=== PATIENT | female | born 1985 | race Caucasian/White ===

== ENCOUNTER 2017-08-03 22:28 | Emergency (ER) | payer BC ==
[2017-08-03] MEDS ORDERED: SODIUM CHLORIDE 0.9% 1,000 ML IV STA (22:51)
--- NOTE | 2017-08-03 22:58 | ED ---
General Adult HPI - General Chief complaint: Dizziness Stated complaint: SOB Time Seen by Provider: 08/03/17 22:42 Source: patient, RN notes reviewed Mode of arrival: ambulatory Limitations: no limitations - History of Present Illness Initial comments: This a 32-year-old female presents emergency Department chief complaint of palpitations, dizziness and increased hunger. She states that she's had episodes throughout the last year where she knows she gets lightheaded states that she does not feel well and she feels that her heart starts racing. She states that she has had episodes of this and had her blood sugar tested which showed hypoglycemic. Patient states when she does he is better. She states though she's been having symptoms last few days alleviated with eating. She states that she try see every few hours. She does state that she even with supplemental night the fissures hungry. Patient states she is currently approximately 2 months. Patient denies any abdominal pain including nausea, vomiting, diarrhea, constipation, vaginal bleeding or vaginal discharge. She is A0 and scheduled see Dr. Phelan. Patient states already she started even before she was states is not related. Patient does have a history of hypothyroidism currently takes Synthroid 75 g. Patient states that occasionally she feels some pressure in her chest denies any shortness of breath she states that she went to work out today states that she denies anything after felt the symptoms were present. - Related Data Allergies Allergy/AdvReac Type Severity Reaction Status Date / Time No Known Allergies Allergy Verified 08/03/17 22:40 Review of Systems ROS Statement: Those systems with pertinent positive or pertinent negative responses have been documented in the HPI. ROS Other: All systems not noted in ROS Statement are negative. Past Medical History Additional Past Medical History / Comment(s): hypothyroidism History of Any Multi-Drug Resistant Organisms: None Reported Past Surgical History: No Surgical Hx Reported Past Psychological History: No Psychological Hx Reported Smoking Status: Never smoker Past Alcohol Use History: None Reported Past Drug Use History: None Reported General Exam Limitations: no limitations General appearance: alert, in no apparent distress Head exam: Present: atraumatic, normocephalic, normal inspection Eye exam: Present: normal appearance, PERRL, EOMI. Absent: scleral icterus, conjunctival injection, periorbital swelling ENT exam: Present: normal exam, normal oropharynx, mucous membranes moist, TM's normal bilaterally, normal external ear exam Neck exam: Present: normal inspection, full ROM. Absent: tenderness, meningismus, lymphadenopathy Respiratory exam: Present: normal lung sounds bilaterally. Absent: respiratory distress, wheezes, rales, rhonchi, stridor Cardiovascular Exam: Present: normal rhythm, tachycardia, normal heart sounds. Absent: systolic murmur, diastolic murmur, rubs, gallop, clicks GI/Abdominal exam: Present: soft, normal bowel sounds. Absent: distended, tenderness, guarding, rebound, rigid Neurological exam: Present: alert, oriented X3, CN II-XII intact, reflexes normal. Absent: motor sensory deficit Psychiatric exam: Present: anxious Skin exam: Present: warm, dry, intact, normal color. Absent: rash Course Vital Signs 08/03/17 08/03/17 22:35 23:51 Temperature 98.4 F 98.5 F Pulse Rate 115 H 107 H Respiratory 20 17 Rate Blood Pressure 137/80 130/76 O2 Sat by Pulse 100 100 Oximetry EKG Findings - EKG Comments: EKG Findings:: EKG performed at 22:50 sinus tachycardia with rate of 108 FL 146 QRS 82 QT/QTC 346/463 Medical Decision Making - Medical Decision Making 32-year-old female presented emergency department for palpitations not feeling well, possible hypoglycemic events. Patient lab work shows evidence of hypothyroidism. Patient is underdosed on her medications this time. I did advise her that she needs a follow-up with her technician semiconductor development for adjustment. She'll follow-up with Dr. Phelan for her . Patient symptoms are exacerbated by working out in may be having hypoglycemic events. We did discuss that she needs eat more protein in home weeds to help stabilize her blood sugar. We did discuss about monitoring her blood sugar though this will be discussed by her technician semiconductor development. Patient will be given toll mechanic for her palpitations. - Lab Data Result diagrams: 08/03/17 23:04 08/03/17 23:04 Lab Results 08/03/17 08/03/17 08/03/17 Range/Units 23:04 23:04 23:04 WBC 10.0 (3.8-10.6) k/uL RBC 4.71 (3.80-5.40) m/uL Hgb 13.9 (11.4-16.0) gm/dL Hct 41.1 (34.0-46.0) % MCV 87.4 (80.0-100.0) fL MCH 29.4 (25.0-35.0) pg MCHC 33.7 (31.0-37.0) g/dL RDW 14.4 (11.5-15.5) % Plt Count 263 (150-450) k/uL Neutrophils % 69 % Lymphocytes % 23 % Monocytes % 5 % Eosinophils % 1 % Basophils % 0 % Neutrophils # 6.9 (1.3-7.7) k/uL Lymphocytes # 2.3 (1.0-4.8) k/uL Monocytes # 0.5 (0-1.0) k/uL Eosinophils # 0.1 (0-0.7) k/uL Basophils # 0.0 (0-0.2) k/uL Sodium 138 (137-145) mmol/L Potassium 4.2 (3.5-5.1) mmol/L Chloride 100 (98-107) mmol/L Carbon Dioxide 24 (22-30) mmol/L Anion Gap 14 mmol/L BUN 17 (7-17) mg/dL Creatinine 0.60 (0.52-1.04) mg/dL Est GFR (MDRD) Af Amer >60 (>60 ml/min/1.73 sqM) Est GFR (MDRD) Non-Af >60 (>60 ml/min/1.73 sqM) Glucose 129 H (74-99) mg/dL Calcium 9.3 (8.4-10.2) mg/dL Magnesium 1.9 (1.6-2.3) mg/dL Total Bilirubin 0.3 (0.2-1.3) mg/dL AST 34 (14-36) U/L ALT 30 (9-52) U/L Alkaline Phosphatase 54 (38-126) U/L Troponin I <0.012 (0.000-0.034) ng/mL Total Protein 7.4 (6.3-8.2) g/dL Albumin 4.3 (3.5-5.0) g/dL TSH 21.000 H (0.465-4.680) mIU/L Free T4 0.61 L (0.78-2.19) ng/dL HCG, Quant 15087.3 mIU/mL Urine Color Urine Appearance (Clear) Urine pH (5.0-8.0) Ur Specific [place] (1.001-1.035) Urine Protein (Negative) Urine Glucose (UA) (Negative) Urine Ketones (Negative) Urine Blood (Negative) Urine Nitrite (Negative) Urine Bilirubin (Negative) Urine Urobilinogen (<2.0) mg/dL Ur Leukocyte Esterase (Negative) Urine Opiates Screen (NotDetected) Ur Oxycodone Screen (NotDetected) Urine Methadone Screen (NotDetected) Ur Propoxyphene Screen (NotDetected) Ur Barbiturates Screen (NotDetected) U Tricyclic Antidepress (NotDetected) Ur Phencyclidine Scrn (NotDetected) Ur Amphetamines Screen (NotDetected) U Methamphetamines Scrn (NotDetected) U Benzodiazepines Scrn (NotDetected) Urine Cocaine Screen (NotDetected) U Marijuana (THC) Screen (NotDetected) 08/03/17 08/03/17 Range/Units 23:17 23:17 WBC (3.8-10.6) k/uL RBC (3.80-5.40) m/uL Hgb (11.4-16.0) gm/dL Hct (34.0-46.0) % MCV (80.0-100.0) fL MCH (25.0-35.0) pg MCHC (31.0-37.0) g/dL RDW (11.5-15.5) % Plt Count (150-450) k/uL Neutrophils % % Lymphocytes % % Monocytes % % Eosinophils % % Basophils % % Neutrophils # (1.3-7.7) k/uL Lymphocytes # (1.0-4.8) k/uL Monocytes # (0-1.0) k/uL Eosinophils # (0-0.7) k/uL Basophils # (0-0.2) k/uL Sodium (137-145) mmol/L Potassium (3.5-5.1) mmol/L Chloride (98-107) mmol/L Carbon Dioxide (22-30) mmol/L Anion Gap mmol/L BUN (7-17) mg/dL Creatinine (0.52-1.04) mg/dL Est GFR (MDRD) Af Amer (>60 ml/min/1.73 sqM) Est GFR (MDRD) Non-Af (>60 ml/min/1.73 sqM) Glucose (74-99) mg/dL Calcium (8.4-10.2) mg/dL Magnesium (1.6-2.3) mg/dL Total Bilirubin (0.2-1.3) mg/dL AST (14-36) U/L ALT (9-52) U/L Alkaline Phosphatase (38-126) U/L Troponin I (0.000-0.034) ng/mL Total Protein (6.3-8.2) g/dL Albumin (3.5-5.0) g/dL TSH (0.465-4.680) mIU/L Free T4 (0.78-2.19) ng/dL HCG, Quant mIU/mL Urine Color Yellow Urine Appearance Clear (Clear) Urine pH 5.5 (5.0-8.0) Ur Specific [place] 1.016 (1.001-1.035) Urine Protein Negative (Negative) Urine Glucose (UA) Negative (Negative) Urine Ketones Negative (Negative) Urine Blood Negative (Negative) Urine Nitrite Negative (Negative) Urine Bilirubin Negative (Negative) Urine Urobilinogen <2.0 (<2.0) mg/dL Ur Leukocyte Esterase Negative (Negative) Urine Opiates Screen Not Detected (NotDetected) Ur Oxycodone Screen Not Detected (NotDetected) Urine Methadone Screen Not Detected (NotDetected) Ur Propoxyphene Screen Not Detected (NotDetected) Ur Barbiturates Screen Not Detected (NotDetected) U Tricyclic Antidepress Not Detected (NotDetected) Ur Phencyclidine Scrn Not Detected (NotDetected) Ur Amphetamines Screen Not Detected (NotDetected) U Methamphetamines Scrn Not Detected (NotDetected) U Benzodiazepines Scrn Not Detected (NotDetected) Urine Cocaine Screen Not Detected (NotDetected) U Marijuana (THC) Screen Not Detected (NotDetected) Disposition Clinical Impression: Palpitations, Dizziness, Hypothyroidism, Disposition: HOME SELF-CARE Condition: Stable Instructions: Palpitations (ED), Non-diabetic Hypoglycemia (ED) Additional Instructions: Please return to the Emergency Department if symptoms worsen or any other concerns. Referrals: Kath Ramirez III, MD [Primary Care Provider] - 1-2 days Delfina Lux MD [STAFF PHYSICIAN] - 1-2 days Nnuo Silva MD [STAFF PHYSICIAN] - 1-2 days
[2017-08-03 23:18] LABS: Basophils % (A) 0 %; CH 29.3; CHCM 33.7; Eosinophils # (A) 0.1 k/uL (0-0.7); Eosinophils % (A) 1 %; HCT 41.1 % (34.0-46.0); HDW 2.13; HGB 13.9 gm/dL (11.4-16.0); Luc # (Auto) 0.25; Luc % (Auto) 3; Lymphocytes # (A) 2.3 k/uL (1.0-4.8); Lymphocytes % (A) 23 %; MCH 29.4 pg (25.0-35.0); MCHC 33.7 g/dL (31.0-37.0); MCV 87.4 fL (80.0-100.0); Mean Platelet Volume 7.3; Monocytes # (A) 0.5 k/uL (0-1.0); Monocytes % (A) 5 %; Neutrophils # (A) 6.9 k/uL (1.3-7.7); Neutrophils % (A) 69 %; RBC 4.71 m/uL (3.80-5.40); RDW 14.4 % (11.5-15.5); WBC (Perox) 9.44
[2017-08-03 23:25] LABS: Appearance,Urine Clear (Clear); Bilirubin,Urine Negative (Negative); Glucose,Urine (UA) Negative (Negative); Ketones,Urine Negative (Negative); Leukocyte Esterase,Urine Negative (Negative); Nitrite,Urine Negative (Negative); PH, Urine 5.5 (5.0-8.0); Protein,Urine Negative (Negative); Specific Gravity,Urine 1.016 (1.001-1.035); UA Billing (MACRO vs. MICRO) CHEM; Urobilinogen,Urine <2.0 mg/dL (<2.0)
[2017-08-03 23:28] LABS: ALT 30 U/L (9-52); AST 34 U/L (14-36); Alkaline Phosphatase 54 U/L (38-126); Anion Gap 14 mmol/L; Blood Urea Nitrogen 17 mg/dL (7-17); Calcium 9.3 mg/dL (8.4-10.2); Carbon Dioxide 24 mmol/L (22-30); Chloride 100 mmol/L (98-107); Glucose 129 mg/dL (74-99); Magnesium 1.9 mg/dL (1.6-2.3); Non-African American GFR(MDRD) >60 (>60 ml/min/1.73 sqM); Potassium 4.2 mmol/L (3.5-5.1); Sodium 138 mmol/L (137-145); Total Bilirubin 0.3 mg/dL (0.2-1.3); Total Protein 7.4 g/dL (6.3-8.2)
[2017-08-03 23:53] VITALS: BP 130/76; PULSE 107; RESP 17; TEMP 98.5
== END 2017-08-04 00:46 | disposition home or self-care (01) ==
LOC: EC 22:28
DX: O99.89 Other specified diseases and conditions complicating pregnancy, childbirth and the puerperium (principal); R00.2 Palpitations; R42 Dizziness and giddiness; R06.02 Shortness of breath; O99.281 Endocrine, nutritional and metabolic diseases complicating pregnancy, first trimester; E03.9 Hypothyroidism, unspecified; Z3A.08 8 weeks gestation of pregnancy
CPT/HCPCS: 36415; 80053; 80306; 81003; 83735; 84439; 84443; 84484; 84702; 85025; 93005; 96360; 99284

== ENCOUNTER 2017-08-08 19:19 | Emergency (ER) | payer BC ==
[2017-08-08 19:26] VITALS: BP 132/75; PULSE 103; RESP 18; TEMP 97.7
[2017-08-08 20:04] LABS: Glucose,Whole Blood 93 mg/dL (75-99)
--- NOTE | 2017-08-08 20:17 | ED ---
General Adult HPI - General Chief complaint: Dizziness Stated complaint: Light Headed Time Seen by Provider: 08/08/17 19:48 Source: patient, RN notes reviewed Mode of arrival: ambulatory Limitations: no limitations - History of Present Illness Initial comments: 32-year-old female presents emergency Department for recheck of her symptoms. Patient states that she has intense extreme hunger. She states that she is and was diagnosed with hypothyroidism. She did call her phonograph mechanic to increase her Synthroid to 100 g. Patient states that it has only been 2 days. She states she has not felt any better and states that she just cannot tolerate her hunger issues. She states that she is eating somewhat states that she feels that she's had a vomit but also causing constipation. Patient has not taken anything for the constipation. Patient denies any abdominal pain including abdominal cramping, dysuria or hematuria. Patient has fever, chills. - Related Data Home Medications Medication Instructions Recorded Confirmed Folic Acid 0.8 mg PO DAILY 08/08/17 08/08/17 Levothyroxine Sodium [Synthroid] 100 mcg PO DAILY 08/08/17 08/08/17 Multivitamin [Multivitamins Adult 1 tab PO DAILY 08/08/17 08/08/17 Gummies] Allergies Allergy/AdvReac Type Severity Reaction Status Date / Time No Known Allergies Allergy Verified 08/08/17 19:39 Review of Systems ROS Statement: Those systems with pertinent positive or pertinent negative responses have been documented in the HPI. ROS Other: All systems not noted in ROS Statement are negative. Past Medical History Past Medical History: Thyroid Disorder Additional Past Medical History / Comment(s): hypothyroidism History of Any Multi-Drug Resistant Organisms: None Reported Past Surgical History: No Surgical Hx Reported Past Psychological History: No Psychological Hx Reported Smoking Status: Never smoker Past Alcohol Use History: None Reported Past Drug Use History: None Reported General Exam Limitations: no limitations General appearance: alert, in no apparent distress Head exam: Present: atraumatic, normocephalic, normal inspection Neck exam: Present: normal inspection, full ROM. Absent: tenderness, meningismus, lymphadenopathy Respiratory exam: Present: normal lung sounds bilaterally. Absent: respiratory distress, wheezes, rales, rhonchi, stridor Cardiovascular Exam: Present: regular rate, normal rhythm, normal heart sounds. Absent: systolic murmur, diastolic murmur, rubs, gallop, clicks GI/Abdominal exam: Present: soft, normal bowel sounds. Absent: distended, tenderness, guarding, rebound, rigid Course Vital Signs 08/08/17 19:23 Temperature 97.7 F Pulse Rate 103 H Respiratory 18 Rate Blood Pressure 132/75 O2 Sat by Pulse 99 Oximetry Medical Decision Making - Medical Decision Making 32-year-old female presented for increased 100 and . Patient had complete workup 5 days ago which showed hypothyroidism. Patient will continue on her increased dose follow-up with her [employer] WATCHMAN and primary care physician and phonograph mechanic as discussed. Patient was given outline of healthy foods. Patient was advised that she can increase her fiber intake which may help also can take Colace states for her constipation issues. - Lab Data Lab Results 08/08/17 Range/Units 20:02 POC Glucose (mg/dL) 93 (75-99) mg/dL POC Glu Plate Glass Grinder ID Shakira Shetty Disposition Clinical Impression: , Hypothyroidism, Excessive hunger Disposition: HOME SELF-CARE Instructions: High Protein / High Calorie Diet (ED) Additional Instructions: Please return to the Emergency Department if symptoms worsen or any other concerns. Referrals: Kath Ramirez III, MD [Primary Care Provider] - 1-2 days Time of Disposition: 20:16
[2017-08-08 20:34] LABS: Glucose,Whole Blood 82 mg/dL (75-99)
== END 2017-08-08 20:15 | disposition home or self-care (01) ==
LOC: EC 19:19
DX: O99.280 Endocrine, nutritional and metabolic diseases complicating pregnancy, unspecified trimester (principal); E03.9 Hypothyroidism, unspecified; O21.9 Vomiting of pregnancy, unspecified; O99.89 Other specified diseases and conditions complicating pregnancy, childbirth and the puerperium; R63.2 Polyphagia; K59.00 Constipation, unspecified; R50.9 Fever, unspecified; Z79.899 Other long term (current) drug therapy; Z3A.00 Weeks of gestation of pregnancy not specified
CPT/HCPCS: 36415; 99284

== ENCOUNTER → 2017-12-03 | Outpatient (CLI) | payer BC ==
[2017-12-03 17:42] LABS: HCT 36.5 % (34.0-46.0); HGB 11.7 gm/dL (11.4-16.0); MCH 27.1 pg (25.0-35.0); MCHC 32.1 g/dL (31.0-37.0); MCV 84.3 fL (80.0-100.0); Mean Platelet Volume 8.1; Platelet Count 249 k/uL (150-450); RBC 4.32 m/uL (3.80-5.40); RDW 15.5 % (11.5-15.5); WBC 11.4 k/uL (3.8-10.6)
== END | disposition home or self-care (01) ==
LOC: LABWHC1 15:50
PROVIDERS: ATTEND Obstetrics & Gynecology
DX: Z34.82 Encounter for supervision of other normal pregnancy, second trimester (principal); Z3A.00 Weeks of gestation of pregnancy not specified
CPT/HCPCS: 36415; 82950; 85027

== ENCOUNTER 2017-12-12 15:40 | Outpatient (CLI) | payer BC ==
[2017-12-12 16:23] LABS: Appearance,Urine Clear (Clear); Bacteria,Urine Occasional /hpf; Bilirubin,Urine Negative (Negative); Blood,Urine Trace (Negative); Color,Urine Light Yellow; Glucose,Urine (UA) Negative (Negative); Ketones,Urine Negative (Negative); Leukocyte Esterase,Urine Negative (Negative); Nitrite,Urine Negative (Negative); Protein,Urine Negative (Negative); RBC,Urine 2 /hpf (0-5); Specific Gravity,Urine 1.007 (1.001-1.035); Squamous Epithelial Cell,Urine 1 /hpf (0-4); Urobilinogen,Urine <2.0 mg/dL (<2.0); WBC,Urine <1 /hpf (0-5)
[2017-12-12 16:30] VITALS: TEMP 97
[2017-12-12 16:31] LABS: ALT 8 U/L (9-52); AST 17 U/L (14-36); Blood Urea Nitrogen 15 mg/dL (7-17); LDH 350 U/L (313-618); Uric Acid 2.6 mg/dL (3.7-7.4)
[2017-12-12 16:34] LABS: Basophils % (A) 0 %; Eosinophils # (A) 0.1 k/uL (0-0.7); Eosinophils % (A) 0 %; HCT 36.7 % (34.0-46.0); Lymphocytes # (A) 1.8 k/uL (1.0-4.8); Lymphocytes % (A) 16 %; MCH 26.7 pg (25.0-35.0); MCHC 32.6 g/dL (31.0-37.0); MCV 82.1 fL (80.0-100.0); Mean Platelet Volume 7.6; Monocytes # (A) 0.6 k/uL (0-1.0); Monocytes % (A) 6 %; Neutrophils # (A) 8.2 k/uL (1.3-7.7); Neutrophils % (A) 75 %; Platelet Count 254 k/uL (150-450); RBC 4.47 m/uL (3.80-5.40); RDW 15.7 % (11.5-15.5)
[2017-12-12 17:01] VITALS: BP 123/74; PULSE 103; RESP 18
--- NOTE | 2017-12-13 07:52 | P.MSEPDOC ---
Presenting Problems - Arrival Data Date of Arrival on Unit: 12/12/17 Time of Arrival on Unit: 15:40 Mode of Transport: Ambulatory - Complaint OB-Reason for Admission/Chief Complaint: Other Comment: Patient states she has been monitoring her blood pressures at home and has had "spikes" in blood pressures. Highest SBP was 145 yesterday evening and 134 SBP today. Medical History - Information : 2 Para: 1 Term: 1 : 0 Abortions: Spontaneous or Elective: 0 Number of Living Children: 1 - Gestational Age Gestational Age by BECKI (wks/days): 25 Weeks and 3 Days - History Comment: Failed one hour glucola therefore has been monitoring sugars at home and been "eating well" Review of Systems - Review of Systems Constitutional: No problems Breast: No problems ENT: No problems Cardiovascular: No problems Respiratory: No problems Gastrointestinal: No problems Genitourinary: No problems Musculoskeletal: No problems Neurological: No problems Skin: No problems Vital Signs - Temperature Temperature: 97.0 F Temperature Source: Temporal Artery Scan - Pulse Pulse Oximetery Pulse Rate: 103 Pulse Assessment Method: Automatic Cuff - Respirations Respiratory Rate: 18 Oxygen Delivery Method: Room Air - Blood Pressure Right Arm Blood Pressure: 123/74 Blood Pressure Mean: 90 Blood Pressure Source: Automatic Cuff Medical Screen Scoring (Pre) - Cervical Exam Dilation: Exam Deferred Effacement: Exam Deferred Membranes: Intact - Uterine Contractions Frequency: N/A Duration: N/A Intensity: N/A - Maternal Vital Signs Maternal Temperature: N/A Maternal Blood Pressure: N/A Signs of Preeclampsia: N/A Maternal Respirations: N/A - Pain Assessment Pain Scale Used: Numeric (1 - 10) Pain Intensity: 0 - Maternal Trauma Maternal Trauma: N/A - Assessment Baseline FHR: 155 Heart Rate - NICHD Category: Category I (Normal) = 0 NST: Reactive Position: N/A Station: N/A - Total Score Total Score (Pre): 0 - Level of Risk Level of Risk: Low (0-5) Physician Notification (Pre) - Physician Notified Physician Notified Date: 12/12/17 Physician Notified Time: 16:00 Physician/Practitioner Notifed:: Julius Spoke With: Julius New Order Received: Yes ([facility] labs) Medical Screen Scoring (Post) - Cervical Exam Dilation: Exam Deferred Effacement: Exam Deferred Membranes: Intact - Uterine Contractions Frequency: N/A Duration: N/A Intensity: N/A - Maternal Vital Signs Maternal Temperature: N/A Maternal Blood Pressure: N/A Signs of Preeclampsia: N/A Maternal Respirations: N/A - Pain Assessment Pain Scale Used: Numeric (1 - 10) Pain Intensity: 0 - Maternal Trauma Maternal Trauma: N/A - Assessment Heart Rate: 155 Heart Rate - NICHD Category: Category I (Normal) = 0 NST: Reactive Position: N/A Station: N/A - Total Score Total Score (Post): 0 - Post Treatment Level of Risk Post Treatment Level of Risk: Low (0-5) Physician Notification (Post) - Physician Notified Physician Notified Date: 12/12/17 Physician Notified Time: 16:42 Physician/Practitioner Notified:: Julius Spoke With: Julius Haro Order Received: Yes (Discharge home) Disposition - Disposition OB Disposition: Discharge to home Discharge Date: 12/12/17 Discharge Time: 16:55 I agree with the RN Medical Screening Exam: Yes Risk & Benefit of care provided described in d/c instruction: Yes Diagnosis: RELATED CONDITIONS, UNSPECIFIED, SECOND TRIMESTER
== END 2017-12-12 16:55 | disposition home or self-care (01) ==
LOC: FBPOP 15:40
PROVIDERS: ATTEND Obstetrics & Gynecology
DX: O26.92 Pregnancy related conditions, unspecified, second trimester (principal); Z3A.25 25 weeks gestation of pregnancy
CPT/HCPCS: 59025; 81001; 82565; 83615; 84450; 84460; 84520; 84550; 85025; 99215

== ENCOUNTER → 2018-02-19 | Outpatient (CLI) | payer BC ==
[2018-02-19 14:11] LABS: Anisocytosis Slight; HCT 36.5 % (34.0-46.0); MCH 26.7 pg (25.0-35.0); MCHC 32.9 g/dL (31.0-37.0); Mean Platelet Volume 8.6; Platelet Count 198 k/uL (150-450); RBC 4.51 m/uL (3.80-5.40); RDW 16.4 % (11.5-15.5); WBC 9.7 k/uL (3.8-10.6)
[2018-02-19 14:22] LABS: ALT 22 U/L (9-52); AST 22 U/L (14-36); Bilirubin, Delta 0.1 mg/dL (0.0-0.2); Bilirubin,Unconjugated 0.1 mg/dL (0.0-1.1); Blood Urea Nitrogen 12 mg/dL (7-17); LDH 431 U/L (313-618); Total Bilirubin 0.2 mg/dL (0.2-1.3); Uric Acid 3.5 mg/dL (3.7-7.4)
== END | disposition home or self-care (01) ==
LOC: LABWHC1 13:54
PROVIDERS: ATTEND Obstetrics & Gynecology
DX: L29.9 Pruritus, unspecified (principal)
CPT/HCPCS: 36415; 82239; 82248; 82565; 83615; 84450; 84460; 84520; 84550; 85027

== ENCOUNTER 2018-03-17 06:00 | Inpatient (IN) | payer BC ==
[2018-03-17] MEDS ORDERED: METHYLERGONOVINE 0.2 MG/ML 1 ML AMP IM PRN (06:29)
[2018-03-17] MEDS ORDERED: LIDOCAINE 1% (PF) 10 MG/ML (30 ML SDV) SQ PRN (06:29)
[2018-03-17] MEDS ORDERED: OXYTOCIN 10 UNIT/ML 1 ML VIAL IM PRN (06:29)
[2018-03-17] MEDS ORDERED: CARBOPROST TROMETHAMINE 250 MCG/ML 1 ML AMP IM PRN (06:29)
[2018-03-17] MEDS ORDERED: TERBUTALINE 1 MG/ML VIAL SQ PRN (06:29)
[2018-03-17] MEDS: LACTATED RINGERS 1,000 ML IV SCH ×3 (06:35→16:49)
[2018-03-17] MEDS: OXYTOCIN 20 UNITS/1000 ML NS 1,000 ML IV SCH ×2 (06:54→19:45)
[2018-03-17 06:57] LABS: Anisocytosis Slight; Basophils % (A) 0 %; Eosinophils # (A) 0.1 k/uL (0-0.7); Eosinophils % (A) 1 %; HCT 38.8 % (34.0-46.0); HGB 12.8 gm/dL (11.4-16.0); Lymphocytes # (A) 2.3 k/uL (1.0-4.8); Lymphocytes % (A) 23 %; MCH 26.9 pg (25.0-35.0); MCHC 32.9 g/dL (31.0-37.0); MCV 81.9 fL (80.0-100.0); Mean Platelet Volume 8.9; Monocytes # (A) 0.7 k/uL (0-1.0); Monocytes % (A) 7 %; Neutrophils # (A) 6.6 k/uL (1.3-7.7); Neutrophils % (A) 67 %; Platelet Count 175 k/uL (150-450); RBC 4.74 m/uL (3.80-5.40); RDW 16.6 % (11.5-15.5); WBC 9.8 k/uL (3.8-10.6)
[2018-03-17] MEDS ORDERED: BUTORPHANOL 1 MG/ML 1 ML VIAL IV PRN (08:43)
[2018-03-17 09:25] VITALS: BMI 34.4
[2018-03-17] MEDS ORDERED: ROPIVACAINE 100 MG, fentaNYL (PF) 200 MCG in SODIUM CHLORIDE 0.9% 76 ML EPIDURAL ONE (14:59)
[2018-03-17] MEDS ORDERED: LANOLIN CREAM 5 GM TUBE TOPICAL PRN (19:00)
[2018-03-17] MEDS ORDERED: ZOLPIDEM 5 MG TAB PO PRN (19:00)
[2018-03-17] MEDS ORDERED: BENZOCAINE/MENTHOL SPRAY 1 GM/SPRAY AEROSOL TOPICAL PRN (19:00)
[2018-03-17] MEDS ORDERED: HYDROCORTISONE 2.5% RECTAL CREAM 30 GM TUBE RECTAL PRN (19:00)
[2018-03-17] MEDS ORDERED: WITCH HAZEL 1 EACH MED..PAD TOPICAL PRN (19:00)
[2018-03-17] MEDS ORDERED: ACETAMINOPHEN TAB 325 MG TAB PO PRN (19:00)
[2018-03-17] MEDS ORDERED: diphenhydrAMINE 25 MG CAP PO PRN (19:00)
[2018-03-17] MEDS ORDERED: diphenhydrAMINE 50 MG/ML 1 ML VIAL IVP PRN ×2 (19:00)
[2018-03-17] MEDS ORDERED: diphenhydrAMINE 50 MG CAP PO PRN (19:00)
[2018-03-17] MEDS ORDERED: SIMETHICONE 80 MG CHEWABLE PO PRN (19:00)
--- NOTE | 2018-03-17 19:05 | P.HPOB ---
History of Present Illness H&P Date: 03/17/18 Chief Complaint: Intrauterine at term: Induction of labor Patient is a 32-year-old at 39 weeks gestation arise for induction of labor. Her course was, complicated by the question of gestational diabetes. Initially she had failed her one-hour Glucola screen and as she also had choroid plexus cysts she was referred to maternal medicine. She refused to do the 3 hour Glucola and instead saw diabetic education at [facility]. During that process she decided that since her blood sugars were normal she was not gestational diabetic and stopped going to the gestational diabetic teaching and intermittently check her blood sugars and reported back that there were all normal. As there was no clear evidence that she was truly gestationally diabetic nonstress tests were not indicated and she was followed without any other significant issues through the remainder of the . Pertinent labs do include A+ blood type, Rh antibody was negative, rubella immune, hepatitis B surface antigen and RPR were both negative. On physical exam today she was dilated to 1/2 cm 70% effaced and -3 station. Artificial rupture membranes was performed and clear fluid is noted. We'll plan Pitocin augmentation of labor. Category 1 tracing is noted. Past Medical History Past Medical History: Thyroid Disorder Additional Past Medical History / Comment(s): hypothyroidism History of Any Multi-Drug Resistant Organisms: None Reported Past Surgical History: No Surgical Hx Reported Past Anesthesia/Blood Transfusion Reactions: No Reported Reaction Past Psychological History: No Psychological Hx Reported Smoking Status: Never smoker Past Alcohol Use History: None Reported Past Drug Use History: None Reported - Past Family History Mother Family Medical History: No Reported History Medications and Allergies Home Medications Medication Instructions Recorded Confirmed Type Folic Acid 0.8 mg PO DAILY 08/08/17 03/17/18 History Levothyroxine Sodium [Synthroid] 100 mcg PO DAILY 08/08/17 03/17/18 History Multivitamin [Multivitamins Adult 1 tab PO DAILY 08/08/17 03/17/18 History Gummies] Allergies Allergy/AdvReac Type Severity Reaction Status Date / Time No Known Allergies Allergy Verified 03/17/18 06:28 Exam Osteopathic Statement: *. No significant issues noted on an osteopathic structural exam other than those noted in the History and Physical/Consult. Vital Signs Temp Pulse Resp BP 03/17/18 06:27 97.4 F L 102 H 16 142/79 Intake and Output 03/17/18 03/17/18 03/17/18 06:59 14:59 22:59 Other: Weight 99.79 kg - OBG Physical Exam Breast: both: normal (no masses) Abdomen: bowel sounds normal, no diffuse tenderness, no bruit present, no guarding noted, no hepatomegaly, no splenomegaly, no mass Vulva: both: normal Vagina: normal moisture, no discharge Cervix: no lesion, no discharge Uterus: normal size, normal contour Adnexa: both: normal Anus/Rectum: normal perianal skin, no rectal mass, no hemorrhoids, heme negative Results Result Diagrams: 03/17/18 06:40 Abnormal Lab Results - Last 24 Hours (Table) 03/17/18 Range/Units 06:40 RDW 16.6 H (11.5-15.5) %
--- NOTE | 2018-03-17 19:10 | P.PROBDLV ---
Vaginal Delivery Note - . Vaginal Delivery Note: Patient progressed complete and pushing with spontaneous vaginal delivery of a viable female over an intact perineum. Following delivery of the head from left occiput anterior position and anterior posterior shoulders were easily delivered with gentle downward upper traction. The remainder the baby was then delivered and mouth nares were bulb suctioned. was then placed on mother's abdomen where the umbilical cord was allowed to pulsate for 30 seconds and then was clamped and cut. Placenta was then delivered intact. It is noted that during the process of placental delivery the umbilical cord began to separate and once fully delivered it was noted that she had a velamentous insertion. It is also noted that during the process of delivering the placenta she had a significant amount of bleeding and an accurate measurement will be obtained. She is asymptomatic at this time and following deliver the placenta even though the disc and membranes appeared intact I did do a manual exploration of the uterus and no products or placental fragments could be found. scores were 8 and 9 at one and 5 minutes respectfully and the weight was 7 lbs. 0 oz. Both mother and baby are currently stable following delivery. It is noted after measurement that there is an estimated 1400 mL of blood loss. We will obtain CBC in a.m. and continue close monitoring of both patient's vital signs and symptoms as well as uterine firmness and bleeding.
[2018-03-17] MEDS: SENNOSIDES-DOCUSATE SODIUM 1 EACH TAB PO SCH (21:00)
[2018-03-18 06:55] LABS: Anisocytosis Slight; Basophils % (A) 0 %; Eosinophils # (A) 0.1 k/uL (0-0.7); Eosinophils % (A) 1 %; HCT 28.7 % (34.0-46.0); Lymphocytes # (A) 1.7 k/uL (1.0-4.8); Lymphocytes % (A) 17 %; MCH 26.9 pg (25.0-35.0); MCHC 32.9 g/dL (31.0-37.0); MCV 81.7 fL (80.0-100.0); Mean Platelet Volume 9.5; Monocytes # (A) 0.5 k/uL (0-1.0); Monocytes % (A) 5 %; Neutrophils # (A) 7.9 k/uL (1.3-7.7); Neutrophils % (A) 76 %; Platelet Count 137 k/uL (150-450); RBC 3.51 m/uL (3.80-5.40); RDW 16.6 % (11.5-15.5); WBC 10.4 k/uL (3.8-10.6)
[2018-03-18 07:01] LABS: HGB 9.4 gm/dL (11.4-16.0)
[2018-03-18] MEDS: SENNOSIDES-DOCUSATE SODIUM 1 EACH TAB PO SCH (08:00)
--- NOTE | 2018-03-18 09:56 | P.PNOBGVD ---
Subjective - Subjective Principal diagnosis: day 1 Interval history: Overall patient is doing well. Her hemoglobin is noted be 9.4 this morning which considering her blood loss is stable. She reports that her lochia is very light at this time and she is tolerating breast-feeding well and feeling fine. She voices no signs or symptoms or complaints of hypovolemia. She is able tolerate her diet, void, and she is ambulating without difficulty. Patient reports: Reports appetite normal, Reports voiding normally, Reports pain well controlled, Reports ambulating normally [place]: doing well Objective - Latest Vital Signs Latest vital signs: Vital Signs Temp Pulse Resp BP Pulse Ox 03/18/18 05:00 98.0 F 108 H 50 H 130/79 03/18/18 01:00 98.2 F 103 H 16 132/85 03/18/18 00:00 103 H 16 03/17/18 21:00 98.2 F 107 H 16 121/78 03/17/18 20:30 108 H 16 122/77 03/17/18 20:00 97 16 126/60 98 03/17/18 19:40 103 H 16 137/61 03/17/18 19:25 112 H 16 146/66 03/17/18 19:10 130 H 16 134/60 03/17/18 18:55 99.5 F 129 H 18 133/87 Intake and Output 03/17/18 03/18/18 03/18/18 22:59 06:59 14:59 Intake Total 470.15 1000 Output Total 1700 Balance -1229.85 1000 Intake: IV 1000 Oxytocin 20 Units/1000 ml 1000 Ns 1,000 ml @ 1 MILLIUNIT/MIN 3 mls/hr IV .Q24H YAS Rx#:[id number] Intake, IV Titration 470.15 Amount Oxytocin 20 Units/1000 ml 470.15 Ns 1,000 ml @ 1 MILLIUNIT/MIN 3 mls/hr IV .Q24H YAS Rx#:[id number] Output: Urine 300 Estimated Blood Loss 1400 Other: # Voids 1 1 - Exam Lungs: bilateral: normal Chest: Normal S1, Normal S2 Extremities: Present: normal Abdomen: Present: normal appearance, soft Uterus: Present: normal, firm - Labs Labs: Abnormal Lab Results - Last 24 Hours (Table) 03/18/18 Range/Units 06:44 RBC 3.51 L (3.80-5.40) m/uL Hgb 9.4 L D (11.4-16.0) gm/dL Hct 28.7 L (34.0-46.0) % RDW 16.6 H (11.5-15.5) % Plt Count 137 L (150-450) k/uL Neutrophils # 7.9 H (1.3-7.7) k/uL
[2018-03-18] MEDS: IBUPROFEN 600 MG TAB PO PRN (12:09)
[2018-03-18 22:31] LABS: Anisocytosis Slight; Basophils % (A) 0 %; Eosinophils # (A) 0.1 k/uL (0-0.7); Eosinophils % (A) 1 %; HGB 9.6 gm/dL (11.4-16.0); Lymphocytes # (A) 1.9 k/uL (1.0-4.8); Lymphocytes % (A) 20 %; MCH 26.4 pg (25.0-35.0); MCHC 31.9 g/dL (31.0-37.0); MCV 82.7 fL (80.0-100.0); Mean Platelet Volume 9.6; Monocytes # (A) 0.5 k/uL (0-1.0); Monocytes % (A) 5 %; Neutrophils # (A) 6.6 k/uL (1.3-7.7); Neutrophils % (A) 71 %; Platelet Count 155 k/uL (150-450); RBC 3.63 m/uL (3.80-5.40); RDW 16.8 % (11.5-15.5); WBC 9.3 k/uL (3.8-10.6)
[2018-03-19 01:02] VITALS: RESP 16
[2018-03-19] MEDS: IBUPROFEN 600 MG TAB PO PRN ×3 (01:15→15:11)
[2018-03-19] MEDS: SENNOSIDES-DOCUSATE SODIUM 1 EACH TAB PO SCH (04:26)
[2018-03-19 10:50] VITALS: BP 129/86; PULSE 95; TEMP 98.1
--- NOTE | 2018-03-19 17:06 | P.DS ---
Providers Date of admission: 03/17/18 06:18 Expected date of discharge: 03/19/18 Attending physician: Iraj Madrid Primary care physician: Iraj Madrid Hospital Course: Patient underwent normal vaginal delivery. She did have some bleeding . Her hemoglobin drops to 8 but then came up to 9. Her lochia decreased and she'll be discharged home day #2 in stable condition. She is not having any symptoms of anemia. She is not dizzy upon standing, denies chest pain or shortness of breath, no nausea, no fever nor chills, denies any calf pain. She'll follow-up with Dr. Phelan in 6 weeks. Plan - Discharge Summary New Discharge Prescriptions: New Ibuprofen [Motrin] 600 mg PO Q6HR PRN #30 tab PRN Reason: Pain No Action Levothyroxine Sodium [Synthroid] 100 mcg PO DAILY Multivitamin [Multivitamins Adult Gummies] 1 tab PO DAILY Folic Acid 0.8 mg PO DAILY Discharge Medication List Folic Acid 0.8 mg PO DAILY 08/08/17 [History] Levothyroxine Sodium [Synthroid] 100 mcg PO DAILY 08/08/17 [History] Multivitamin [Multivitamins Adult Gummies] 1 tab PO DAILY 08/08/17 [History] Ibuprofen [Motrin] 600 mg PO Q6HR PRN #30 tab 03/18/18 [Rx] Follow up Appointment(s)/Referral(s): Iraj Madrid DO [Primary Care Provider] - 1 Week Activity/Diet/Wound Care/Special Instructions: No heavy lifting, limit stairs and driving, and pelvic rest. If any high temperatures, heavy bleeding, or severe pain call my office Discharge Disposition: HOME SELF-CARE
== END 2018-03-19 16:15 | disposition home or self-care (01) | DRG 774 ==
LOC: 4FBP 06:18
PROVIDERS: ADMIT Obstetrics & Gynecology; ATTEND Obstetrics & Gynecology
PROC: 3E033VJ Introduction of Other Hormone into Peripheral Vein, Percutaneous Approach (ICD-10-PCS; principal; 2018-03-17)
PROC: 00HU33Z Insertion of Infusion Device into Spinal Canal, Percutaneous Approach (ICD-10-PCS; principal; 2018-03-17)
PROC: 10907ZC Drainage of Amniotic Fluid, Therapeutic from Products of Conception, Via Natural or Artificial Opening (ICD-10-PCS; principal; 2018-03-17)
PROC: 10E0XZZ Delivery of Products of Conception, External Approach (ICD-10-PCS; principal; 2018-03-17)
PROC: 3E0R3NZ Introduction of Analgesics, Hypnotics, Sedatives into Spinal Canal, Percutaneous Approach (ICD-10-PCS; principal; 2018-03-17)
DX: O99.284 Endocrine, nutritional and metabolic diseases complicating childbirth (principal); O72.1 Other immediate postpartum hemorrhage; Z37.0 Single live birth; E03.9 Hypothyroidism, unspecified; Z3A.39 39 weeks gestation of pregnancy; Z79.890 Hormone replacement therapy; Z79.899 Other long term (current) drug therapy; G93.0 Cerebral cysts; O99.354 Diseases of the nervous system complicating childbirth
CPT/HCPCS: 85025; 88305; 88307

== ENCOUNTER 2018-05-07 05:58 | Day surgery (SDC) | payer BC ==
--- NOTE | 2018-05-06 16:45 | P.HPOB ---
History of Present Illness H&P Date: 05/06/18 Chief Complaint: Questionable retained placenta Xin is a 33-year-old female who had a vaginal delivery on 03/17/2018. At time of her delivery she had hemorrhage due to lack of uterine tonicity. Bleeding was ultimately controlled and hemoglobin was noted to be 9. The following day after her delivery, she passed a large blood clot that was sent to pathology and was noted to be a blood clot. She is been very concerned about potential retained products for number of weeks, however ultrasounds immediately after delivery nearly universally show some type of irregularity that and was taken for products of conception therefore we have waited until this week to obtain an ultrasound. She is approximately 8 weeks out from having the baby at this time. On ultrasound today it was noted that she had a 3 x 3 by essentially 3 cm area in the lower uterine segment that is suspicious for either retained products or potentially a blood clot. As such and with her current history she is scheduled for a D&C with possible hysteroscopy to verify what that tissue is. Risks and benefits were very thoroughly discussed with the patient including bleeding and infection, damage to bladder, damage to bowel due to potential perforations with need for other surgeries. Potentially could ensue as well as anesthetic risks. The most likely risk however is that of bleeding. There is also some risk of damage to the uterine lining making it difficult or impossible for her to get in the future. She relates that she is having increasing cramping now today and there is a possibility that this piece of tissue in the lower uterine segment will be expelled tonight. Should that happen she is advised to save it and bring it in with her at surgery will plan to send to pathology. She also relates that she is very very lightheaded and dizzy. This is been an ongoing issue for her. She is concerned that there may be something going on with the veins in her brain but with her hemoglobin at 12.9 it seems unlikely that this is due to a low blood count. By her own admission she is not using very much at all as she is trying to lose her weight that she had when she was this was previously advised that she should not do this as she is breast- feeding and she does need to increase caloric content not a decrease. She also relates today that she is waking up at least every 3 hours to feed her . Either of these much more understandable reason why she would be having the lightheadedness. Otherwise her vital signs have been stable and she is afebrile. Heart regular, lungs clear, extremities are without pain. All questions are answered for her prior to proceeding to the operating room and we' ll plan to do a D&C with the possibility of a hysteroscopy depending on what we find when we began surgery in the morning. It is noted that her bleeding has been relatively light. She relates that she passes some very small clots first thing in the morning but throughout the day she has very limited bleeding. Therefore up till now there is been no urgency to try and get her into surgery due to the risks particularly with respect the lining of the uterus and risk of synechiae development following the D&C in somebody who is immediately . Past Medical History Past Medical History: Thyroid Disorder Additional Past Medical History / Comment(s): hypothyroidism History of Any Multi-Drug Resistant Organisms: None Reported Past Surgical History: No Surgical Hx Reported Past Anesthesia/Blood Transfusion Reactions: No Reported Reaction Past Psychological History: No Psychological Hx Reported Smoking Status: Never smoker Past Alcohol Use History: None Reported Past Drug Use History: None Reported - Past Family History Mother Family Medical History: No Reported History Medications and Allergies Home Medications Medication Instructions Recorded Confirmed Type Folic Acid 0.8 mg PO DAILY 08/08/17 03/17/18 History Levothyroxine Sodium [Synthroid] 100 mcg PO DAILY 08/08/17 03/17/18 History Multivitamin [Multivitamins Adult 1 tab PO DAILY 08/08/17 03/17/18 History Gummies] Ibuprofen [Motrin] 600 mg PO Q6HR PRN #30 tab 03/18/18 Rx Allergies Allergy/AdvReac Type Severity Reaction Status Date / Time No Known Allergies Allergy Verified 03/17/18 06:28 Exam Osteopathic Statement: *. No significant issues noted on an osteopathic structural exam other than those noted in the History and Physical/Consult.
[~2018-05-07 05:58] MED LIST: Pre Op ABX Message 1 EACH MISC MISCELLANE ONE
[2018-05-07] MEDS ORDERED: LACTATED RINGERS 1,000 ML IV ONE ×3 (06:45→08:06)
[2018-05-07] MEDS ORDERED: LIDOCAINE 1% 20 ML VIAL (10MG/ML) FOR IV START INTRADERMA ONE (06:48)
[2018-05-07] MEDS ORDERED: MIDAZOLAM 2 MG/2 ML VIAL ONE ×2 (07:01→07:52)
[2018-05-07] MEDS ORDERED: ONDANSETRON 4 MG/2 ML VIAL ONE (07:01)
[2018-05-07] MEDS ORDERED: MIDAZOLAM 2 MG/2 ML VIAL IVP ONE (07:04)
[2018-05-07] MEDS ORDERED: ONDANSETRON 4 MG/2 ML VIAL IVP ONE (07:04)
[2018-05-07] MEDS ORDERED: fentaNYL (PF) 50 MCG/ML 2 ML AMP ONE (07:52)
[2018-05-07] MEDS ORDERED: LIDOCAINE 1% INJ 10MG/ML (20 ML MDV) ONE (07:52)
[2018-05-07] MEDS ORDERED: PROPOFOL 10 MG/ML 20 ML VIAL IV ONE (07:52)
[2018-05-07] MEDS ORDERED: KETOROLAC 30 MG/ML 1 ML VIAL ONE (07:52)
--- NOTE | 2018-05-07 08:16 | P.OP ---
Date of Procedure: 05/07/18 Preoperative Diagnosis: Potential retained products Postoperative Diagnosis: Same Procedure(s) Performed: D&C with hysteroscopy Anesthesia: DIVINA Surgeon: Iraj Madrid Estimated Blood Loss (ml): 50 Pathology: other (Uterine curettings) Condition: stable Disposition: same day Operative Findings: Could not visualize anything with blood in the uterus. Tissue pending Description of Procedure: Patient was taken to the operating suite where a general anesthetic found be adequate. She was prepped and draped in normal sterile fashion and placed in dorsal lithotomy position. Initially weighted speculum was inserted into the vagina and the anterior lip surface identified and grasped with single-tooth tenaculum. Uterus was then sounded to 10 cm. Cervix was then dilated. Camera was inserted however no visualization could be obtained due to blood in her uterus. Sharp curettings of the endometrium were then obtained and all tissue was sent to pathology for evaluation. I cannot feel anything along the uterine orellana during the curettage. Whatever came out easily came out there is nothing that felt attached to the uterine lining. Once completed all instruments removed. Sponge, lap, needle counts were all correct 2. Patient was then taken to the recovery room in stable and satisfactory condition. Plan - Discharge Summary New Discharge Prescriptions: New Ibuprofen [Motrin] 600 mg PO Q6HR PRN #30 tab PRN Reason: Pain No Action Levothyroxine Sodium [Synthroid] 112 mcg PO DAILY Ibuprofen [Motrin] 600 mg PO Q6HR PRN #30 tab PRN Reason: Pain Pnv No.95/Ferrous Fum/Folic AC [ Multivitamin Tablet] 1 tab PO DAILY Milam-3 Fatty Acids/Fish Oil [Fish Oil 1,000 mg Softgel] 1 cap PO DAILY Discharge Medication List Levothyroxine Sodium [Synthroid] 112 mcg PO DAILY 08/08/17 [History] Ibuprofen [Motrin] 600 mg PO Q6HR PRN #30 tab 03/18/18 [Rx] Ibuprofen [Motrin] 600 mg PO Q6HR PRN #30 tab 05/07/18 [Rx] Milam-3 Fatty Acids/Fish Oil [Fish Oil 1,000 mg Softgel] 1 cap PO DAILY [History] Pnv No.95/Ferrous Fum/Folic AC [ Multivitamin Tablet] 1 tab PO DAILY [History] Follow up Appointment(s)/Referral(s): Iraj Madrid DO [Doctor of Osteopathic Medicine] - 2 Weeks Activity/Diet/Wound Care/Special Instructions: Expect some spotting to light bleeding the next 2-3 days. Call for any heavy bleeding, severe pain, high temperatures. Limit driving today and pelvic rest today.
[2018-05-07 08:31] VITALS: TEMP 97.2
[2018-05-07 09:00] VITALS: RESP 18
[2018-05-07 09:22] VITALS: BP 127/85; PULSE 81
== END 2018-05-07 09:53 | disposition home or self-care (01) ==
LOC: OR 05:58
PROVIDERS: ATTEND Obstetrics & Gynecology
DX: O73.1 Retained portions of placenta and membranes, without hemorrhage (principal); E03.9 Hypothyroidism, unspecified; Z79.890 Hormone replacement therapy; Z79.899 Other long term (current) drug therapy
CPT/HCPCS: 81025; 88305; 58558; J2250; J2405; J2001; J3010; J1885; J2704

== ENCOUNTER → 2018-05-21 | Outpatient (CLI) | payer BC ==
[2018-05-21 14:35] LABS: HCG,Quantitative Serum <2.4 mIU/mL; T4, Free (Free Thyroxine) 1.63 ng/dL (0.78-2.19)
== END ==
LOC: LABWHC1 13:42
PROVIDERS: ATTEND Obstetrics & Gynecology
DX: N93.8 Other specified abnormal uterine and vaginal bleeding (principal)
CPT/HCPCS: 36415; 82670; 83001; 83002; 84146; 84439; 84481; 84702

== ENCOUNTER 2018-05-24 21:07 | Emergency (ER) | payer BC ==
[2018-05-24] MEDS ORDERED: SODIUM CHLORIDE 0.9% 500 ML 500 ML IV STA (21:56)
--- NOTE | 2018-05-24 22:54 | ED ---
General Adult HPI - General Chief complaint: Weakness Stated complaint: weakness/dizzy Time Seen by Provider: 05/24/18 21:35 Source: patient Mode of arrival: ambulatory Limitations: no limitations - History of Present Illness Initial comments: 33-year-old female patient presents to the emergency department today for evaluation of weakness and dizziness. Patient states that she is 2 months and has been experiencing these symptoms since delivery. Patient states that she did have a large blood loss during delivery and then had heavy bleeding for about 1 month after. Patient did have retained products of conception and subsequently underwent D&C procedure. Patient states that since the D&C procedure she has had decreased bleeding however she still feels very weak. Patient states that her legs are very shaky. States that her gait is abnormal. She states that she feels unsteady. States that she does have an 2- month-old and another child at home and does not feel safe taking care of them because she is feeling so weak and fatigued. States that she did have labs at her doctor's office which did show that she had iron deficiency anemia. States that she has not taking iron supplement but she is taking her vitamin. Patient states the symptoms seemed to be worsening. States that she's also had some blurred vision to the right eye. Patient states that she feels like she is unable to catch her breath. States when she lies down she feels a pressure in her chest. She denies any chest pain, sweats, nausea, or vomiting. States that she has had one headache which she describes as a migraine about a week ago. States that she does have a history of migraines. Patient states she is eating and drinking without difficulty. Having normal bowel movements. She denies any hematuria, dysuria, urinary frequency, urinary urgency. Patient is requesting iron infusion, states that she is not leaving this department until we figure out what is wrong with her. - Related Data Home Medications Medication Instructions Recorded Confirmed Levothyroxine Sodium [Synthroid] 112 mcg PO DAILY 08/08/17 05/24/18 Pnv No.95/Ferrous Fum/Folic AC 1 tab PO DAILY 05/07/18 05/24/18 [ Multivitamin Tablet] Previous Rx's Medication Instructions Recorded Ferrous Sulfate [Feosol] 325 mg PO DAILY #30 tab 05/25/18 Allergies Allergy/AdvReac Type Severity Reaction Status Date / Time No Known Allergies Allergy Verified 05/24/18 22:07 Review of Systems ROS Statement: Those systems with pertinent positive or pertinent negative responses have been documented in the HPI. ROS Other: All systems not noted in ROS Statement are negative. Past Medical History Past Medical History: Thyroid Disorder Additional Past Medical History / Comment(s): hypothyroidism, anemia, History of Any Multi-Drug Resistant Organisms: None Reported Past Surgical History: No Surgical Hx Reported Additional Past Surgical History / Comment(s): D&C, Past Anesthesia/Blood Transfusion Reactions: No Reported Reaction Past Psychological History: No Psychological Hx Reported Smoking Status: Never smoker Past Alcohol Use History: None Reported Past Drug Use History: None Reported - Past Family History Mother Family Medical History: No Reported History General Exam Limitations: no limitations General appearance: alert, in no apparent distress, other (This is a well- developed, well-nourished adult female patient in no acute distress. Vital signs upon presentation are temperature 98.5F, pulse 120, respirations 18, blood pressure 120/75, pulse ox 99% on room air.) Eye exam: Present: normal appearance, PERRL, EOMI. Absent: scleral icterus, conjunctival injection, nystagmus, periorbital swelling ENT exam: Present: normal exam, normal oropharynx, mucous membranes moist Respiratory exam: Present: normal lung sounds bilaterally. Absent: respiratory distress, wheezes, rales, rhonchi, stridor Cardiovascular Exam: Present: normal rhythm, tachycardia, normal heart sounds. Absent: systolic murmur, diastolic murmur, rubs, gallop, clicks GI/Abdominal exam: Present: soft, normal bowel sounds. Absent: distended, tenderness, guarding, rebound, rigid Neurological exam: Present: alert, oriented X3, CN II-XII intact Expanded Speech: Present: fluid speech Cranial nerves: EOM's Intact: Normal, Tongue Deviation: Normal, Nystagmus: Normal Motor strength exam: RUE: 5, LUE: 5, RLE: 5, LLE: 5 Psychiatric exam: Present: normal affect, normal mood Skin exam: Present: warm, dry, intact, pallor. Absent: normal color, rash Course Vital Signs 05/24/18 05/24/18 05/24/18 21:18 22:37 22:40 Temperature 98.5 F Pulse Rate 120 H Respiratory 18 Rate Blood Pressure 120/75 137/85 O2 Sat by Pulse 99 98 95 Oximetry 05/24/18 05/24/18 05/24/18 22:50 23:00 23:10 Temperature Pulse Rate 103 H Respiratory 20 Rate Blood Pressure 137/85 137/85 138/96 O2 Sat by Pulse 98 98 Oximetry EKG Findings - EKG Comments: EKG Findings:: EKG obtained at 2251 shows normal sinus rhythm with a sinus arrhythmia. Ventricular rate is 96, NC interval 160, QRS duration 84, QT 364, QTC 459. No evidence of ST elevation or depression. Medical Decision Making - Medical Decision Making 33-year-old female patient presented to the emergency department today with multiple complaints including weakness, fatigue, dizziness, and shortness of breath. Physical examination was relatively unremarkable. Patient was neurologically intact. Lung sounds are clear to auscultation with good air movement. Vital signs did show elevated heart rate from 96-120. Patient underwent workup in the EC, labs reviewed did reveal an elevated d-dimer have 4.54, elevated BUN at 21. CT angio of the chest was obtained and showed no evidence for pulmonary embolism or other abnormalities. Urinalysis showed no evidence for infection. Patient has no calf tenderness, leg pain, arm pain, swelling, or erythema. Patient elevated d-dimer is most likely related to recent D&C procedure. Chest x-ray shows no acute cardiopulmonary process. EKG showed normal sinus rhythm with a sinus arrhythmia. Patient did have some sinus tachycardia on the monitor but no evidence of arrhythmia. Electrolytes within normal limits. Patient's CBC is returned to baseline (reviewed labs from patient's personal record). I did have a lengthy discussion and discussed all results and findings with the patient. Patient does have a cardiology appointment and echocardiogram scheduled for tomorrow. I did offer to admit patient for further evaluation and to have the echocardiogram performed here in the hospital. Patient does have an infant at home and would rather be discharged. Given patient's close follow-up tomorrow and test results. Do feel comfortable discharging the patient at this time. Patient will receive a B12 shot and I will give prescription for iron supplement. She is instructed to follow-up with her primary care physician as well to discuss referral to neurology should her cardiology visit did not find the cause of her symptoms. Return parameters discussed in detail. She verbalizes understanding and agrees with this plan. - Lab Data Result diagrams: 05/24/18 22:33 05/24/18 22:33 Lab Results 05/24/18 05/24/18 05/24/18 Range/Units 22:33 22:33 22:33 WBC 9.6 (3.8-10.6) k/uL RBC 5.26 (3.80-5.40) m/uL Hgb 13.6 (11.4-16.0) gm/dL Hct 41.5 (34.0-46.0) % MCV 78.8 L (80.0-100.0) fL MCH 25.9 (25.0-35.0) pg MCHC 32.8 (31.0-37.0) g/dL RDW 15.5 (11.5-15.5) % Plt Count 297 (150-450) k/uL Neutrophils % 64 % Lymphocytes % 26 % Monocytes % 6 % Eosinophils % 1 % Basophils % 0 % Neutrophils # 6.2 (1.3-7.7) k/uL Lymphocytes # 2.5 (1.0-4.8) k/uL Monocytes # 0.6 (0-1.0) k/uL Eosinophils # 0.1 (0-0.7) k/uL Basophils # 0.0 (0-0.2) k/uL PT (9.0-12.0) sec INR (<1.2) APTT (22.0-30.0) sec D-Dimer (<0.60) mg/L FEU Sodium 140 (137-145) mmol/L Potassium 4.6 (3.5-5.1) mmol/L Chloride 105 (98-107) mmol/L Carbon Dioxide 25 (22-30) mmol/L Anion Gap 10 mmol/L BUN 21 H (7-17) mg/dL Creatinine 0.63 (0.52-1.04) mg/dL Est GFR (CKD-EPI)AfAm >90 (>60 ml/min/1.73 sqM) Est GFR (CKD-EPI)NonAf >90 (>60 ml/min/1.73 sqM) Glucose 96 (74-99) mg/dL Plasma Lactic Acid Pascual (0.7-2.0) mmol/L Calcium 9.6 (8.4-10.2) mg/dL Magnesium 1.8 (1.6-2.3) mg/dL Total Bilirubin 0.2 (0.2-1.3) mg/dL AST 36 (14-36) U/L ALT 47 (9-52) U/L Alkaline Phosphatase 107 (38-126) U/L Total Creatine Kinase 64 (30-135) U/L CK-MB (CK-2) 0.6 (0.0-2.4) ng/mL CK-MB (CK-2) Rel Index 0.9 Troponin I <0.012 (0.000-0.034) ng/mL Total Protein 7.9 (6.3-8.2) g/dL Albumin 4.5 (3.5-5.0) g/dL Urine Color Urine Appearance (Clear) Urine pH (5.0-8.0) Ur Specific [place] (1.001-1.035) Urine Protein (Negative) Urine Glucose (UA) (Negative) Urine Ketones (Negative) Urine Blood (Negative) Urine Nitrite (Negative) Urine Bilirubin (Negative) Urine Urobilinogen (<2.0) mg/dL Ur Leukocyte Esterase (Negative) Urine RBC (0-5) /hpf Urine WBC (0-5) /hpf Ur Squamous Epith Cells (0-4) /hpf Urine Mucus (None) /hpf Urine HCG, Qual (Not Detectd) 05/24/18 05/24/18 05/24/18 Range/Units 22:33 22:33 22:33 WBC (3.8-10.6) k/uL RBC (3.80-5.40) m/uL Hgb (11.4-16.0) gm/dL Hct (34.0-46.0) % MCV (80.0-100.0) fL MCH (25.0-35.0) pg MCHC (31.0-37.0) g/dL RDW (11.5-15.5) % Plt Count (150-450) k/uL Neutrophils % % Lymphocytes % % Monocytes % % Eosinophils % % Basophils % % Neutrophils # (1.3-7.7) k/uL Lymphocytes # (1.0-4.8) k/uL Monocytes # (0-1.0) k/uL Eosinophils # (0-0.7) k/uL Basophils # (0-0.2) k/uL PT 10.3 (9.0-12.0) sec INR 1.1 (<1.2) APTT 23.2 (22.0-30.0) sec D-Dimer 4.54 H (<0.60) mg/L FEU Sodium (137-145) mmol/L Potassium (3.5-5.1) mmol/L Chloride (98-107) mmol/L Carbon Dioxide (22-30) mmol/L Anion Gap mmol/L BUN (7-17) mg/dL Creatinine (0.52-1.04) mg/dL Est GFR (CKD-EPI)AfAm (>60 ml/min/1.73 sqM) Est GFR (CKD-EPI)NonAf (>60 ml/min/1.73 sqM) Glucose (74-99) mg/dL Plasma Lactic Acid Pascual 1.4 (0.7-2.0) mmol/L Calcium (8.4-10.2) mg/dL Magnesium (1.6-2.3) mg/dL Total Bilirubin (0.2-1.3) mg/dL AST (14-36) U/L ALT (9-52) U/L Alkaline Phosphatase (38-126) U/L Total Creatine Kinase (30-135) U/L CK-MB (CK-2) (0.0-2.4) ng/mL CK-MB (CK-2) Rel Index Troponin I (0.000-0.034) ng/mL Total Protein (6.3-8.2) g/dL Albumin (3.5-5.0) g/dL Urine Color Yellow Urine Appearance Clear (Clear) Urine pH 5.0 (5.0-8.0) Ur Specific [place] 1.015 (1.001-1.035) Urine Protein Negative (Negative) Urine Glucose (UA) Negative (Negative) Urine Ketones Negative (Negative) Urine Blood Negative (Negative) Urine Nitrite Negative (Negative) Urine Bilirubin Negative (Negative) Urine Urobilinogen <2.0 (<2.0) mg/dL Ur Leukocyte Esterase Trace H (Negative) Urine RBC <1 (0-5) /hpf Urine WBC 5 (0-5) /hpf Ur Squamous Epith Cells 6 H (0-4) /hpf Urine Mucus Rare H (None) /hpf Urine HCG, Qual (Not Detectd) 10/15/18 Range/Units 22:33 WBC (3.8-10.6) k/uL RBC (3.80-5.40) m/uL Hgb (11.4-16.0) gm/dL Hct (34.0-46.0) % MCV (80.0-100.0) fL MCH (25.0-35.0) pg MCHC (31.0-37.0) g/dL RDW (11.5-15.5) % Plt Count (150-450) k/uL Neutrophils % % Lymphocytes % % Monocytes % % Eosinophils % % Basophils % % Neutrophils # (1.3-7.7) k/uL Lymphocytes # (1.0-4.8) k/uL Monocytes # (0-1.0) k/uL Eosinophils # (0-0.7) k/uL Basophils # (0-0.2) k/uL PT (9.0-12.0) sec INR (<1.2) APTT (22.0-30.0) sec D-Dimer (<0.60) mg/L FEU Sodium (137-145) mmol/L Potassium (3.5-5.1) mmol/L Chloride (98-107) mmol/L Carbon Dioxide (22-30) mmol/L Anion Gap mmol/L BUN (7-17) mg/dL Creatinine (0.52-1.04) mg/dL Est GFR (CKD-EPI)AfAm (>60 ml/min/1.73 sqM) Est GFR (CKD-EPI)NonAf (>60 ml/min/1.73 sqM) Glucose (74-99) mg/dL Plasma Lactic Acid Pascual (0.7-2.0) mmol/L Calcium (8.4-10.2) mg/dL Magnesium (1.6-2.3) mg/dL Total Bilirubin (0.2-1.3) mg/dL AST (14-36) U/L ALT (9-52) U/L Alkaline Phosphatase (38-126) U/L Total Creatine Kinase (30-135) U/L CK-MB (CK-2) (0.0-2.4) ng/mL CK-MB (CK-2) Rel Index Troponin I (0.000-0.034) ng/mL Total Protein (6.3-8.2) g/dL Albumin (3.5-5.0) g/dL Urine Color Urine Appearance (Clear) Urine pH (5.0-8.0) Ur Specific [place] (1.001-1.035) Urine Protein (Negative) Urine Glucose (UA) (Negative) Urine Ketones (Negative) Urine Blood (Negative) Urine Nitrite (Negative) Urine Bilirubin (Negative) Urine Urobilinogen (<2.0) mg/dL Ur Leukocyte Esterase (Negative) Urine RBC (0-5) /hpf Urine WBC (0-5) /hpf Ur Squamous Epith Cells (0-4) /hpf Urine Mucus (None) /hpf Urine HCG, Qual Not Detected (Not Detectd) - Radiology Data Radiology results: report reviewed, image reviewed CT chest with contrast was performed. Report was reviewed in its entirety. Impression by Dr. Warner shows no evidence of pulmonary embolism. Negative exam. Two-view x-ray of the chest is obtained. Heart mediastinum are normal. Lungs are clear. Diaphragm is normal. Bony thorax appears normal. Impression by Dr. Warner shows normal chest. Disposition Clinical Impression: Weakness, Dizziness, Dyspnea Disposition: HOME SELF-CARE Condition: Good Instructions: Weakness (ED), Dyspnea (ED), Dizziness (ED) Additional Instructions: Take medications as directed. Rest. Follow-up with the communicable disease specialist for your echo as you have planned tomorrow. Follow-up with your primary care physician to discuss possible referral to neurology. Return to the emergency department immediately if anything changes, worsens, or if she develop any new symptoms. Prescriptions: Ferrous Sulfate [Feosol] 325 mg PO DAILY #30 tab Is patient prescribed a controlled substance at d/c from ED?: No Referrals: Kath Ramirez III, MD [Primary Care Provider] - 1-2 days Time of Disposition: 00:50
[2018-05-24 23:02] LABS: Basophils % (A) 0 %; Eosinophils # (A) 0.1 k/uL (0-0.7); Eosinophils % (A) 1 %; HCT 41.5 % (34.0-46.0); HGB 13.6 gm/dL (11.4-16.0); Lymphocytes # (A) 2.5 k/uL (1.0-4.8); Lymphocytes % (A) 26 %; MCH 25.9 pg (25.0-35.0); MCHC 32.8 g/dL (31.0-37.0); MCV 78.8 fL (80.0-100.0); Mean Platelet Volume 7.2; Monocytes # (A) 0.6 k/uL (0-1.0); Monocytes % (A) 6 %; Neutrophils # (A) 6.2 k/uL (1.3-7.7); Neutrophils % (A) 64 %; Platelet Count 297 k/uL (150-450); RBC 5.26 m/uL (3.80-5.40); RDW 15.5 % (11.5-15.5); WBC 9.6 k/uL (3.8-10.6)
[2018-05-24 23:04] LABS: Appearance,Urine Clear (Clear); Bilirubin,Urine Negative (Negative); Blood,Urine Negative (Negative); Color,Urine Yellow; Glucose,Urine (UA) Negative (Negative); Ketones,Urine Negative (Negative); Leukocyte Esterase,Urine Trace (Negative); Mucus,Urine Rare /hpf; Nitrite,Urine Negative (Negative); Protein,Urine Negative (Negative); RBC,Urine <1 /hpf (0-5); Specific Gravity,Urine 1.015 (1.001-1.035); Squamous Epithelial Cell,Urine 6 /hpf (0-4); Urobilinogen,Urine <2.0 mg/dL (<2.0); WBC,Urine 5 /hpf (0-5)
--- NOTE | 2018-05-24 23:12 | XR ---
EXAMINATION TYPE: XR chest 2V DATE OF EXAM: 05/24/2018 COMPARISON: NONE HISTORY: Weakness TECHNIQUE: Frontal and lateral views of the chest are obtained. FINDINGS: Heart and mediastinum are normal. Lungs are clear. Diaphragm is normal. Bony thorax appear s normal. IMPRESSION: Normal chest
[2018-05-24 23:15] VITALS: RESP 20
[2018-05-24 23:21] LABS: INR 1.1 (<1.2); Partial Thromboplastin Time 23.2 sec (22.0-30.0); Prothrombin Time 10.3 sec (9.0-12.0)
[2018-05-24 23:25] LABS: ALT 47 U/L (9-52); AST 36 U/L (14-36); Albumin 4.5 g/dL (3.5-5.0); Alkaline Phosphatase 107 U/L (38-126); Anion Gap 10 mmol/L; Blood Urea Nitrogen 21 mg/dL (7-17); Calcium 9.6 mg/dL (8.4-10.2); Carbon Dioxide 25 mmol/L (22-30); Chloride 105 mmol/L (98-107); Glucose 96 mg/dL (74-99); Magnesium 1.8 mg/dL (1.6-2.3); Potassium 4.6 mmol/L (3.5-5.1); Sodium 140 mmol/L (137-145); Total Bilirubin 0.2 mg/dL (0.2-1.3); Total Protein 7.9 g/dL (6.3-8.2)
[2018-05-24 23:30] LABS: D-Dimer 4.54 mg/L FEU (<0.60)
[2018-05-24 23:37] LABS: Creatine Kinase 64 U/L (30-135)
[2018-05-24 23:50] LABS: Creatine Kinase MB 0.6 ng/mL (0.0-2.4); Troponin I <0.012 ng/mL (0.000-0.034)
--- NOTE | 2018-05-25 00:08 | CT ---
EXAMINATION TYPE: CT chest angio for PE DATE OF EXAM: 05/24/2018 COMPARISON: None HISTORY: No prior, weakness, dizziness, elevated d-dimer, R/O PE CT DLP: 291.50 mGycm Automated exposure control for dose reduction was used. CONTRAST: CT Chest for pulmonary embolism performed with with IV Contrast, patient injected with 70 mL of Isovu e 370. FINDINGS: There are 3-D post processed images. Heart size is normal. There is no pericardial effusion. The lungs are clear of infiltrate. There is n o pleural effusion. There is no pericardial effusion. There are no hilar masses. There is no mediastinal adenopathy. Thoracic aorta appears normal. There i s no evidence of aneurysm or dissection. There is normal contrast opacification of the pulmonary arteries. I see no filling defect. The bony t horax appears intact. IMPRESSION: No evidence of pulmonary embolism. Negative exam.
[2018-05-25] MEDS ORDERED: CYANOCOBALAMIN 1,000 MCG/ML 1 ML VIAL IM STA (00:50)
[2018-05-25 01:30] VITALS: BP 134/88; PULSE 91; TEMP 98.3
== END 2018-05-25 01:30 | disposition home or self-care (01) ==
LOC: EC 21:07
DX: R53.1 Weakness (principal); R42 Dizziness and giddiness; R00.0 Tachycardia, unspecified; R79.1 Abnormal coagulation profile; R79.89 Other specified abnormal findings of blood chemistry; I49.9 Cardiac arrhythmia, unspecified; R23.1 Pallor; R26.89 Other abnormalities of gait and mobility; H53.8 Other visual disturbances; D50.9 Iron deficiency anemia, unspecified; R07.89 Other chest pain; R06.02 Shortness of breath; R53.83 Other fatigue; R51 Headache; E03.9 Hypothyroidism, unspecified; Z79.899 Other long term (current) drug therapy
CPT/HCPCS: 36415; 85379; 80053; 82550; 82553; 83605; 83735; 84484; 85025; 85610; 85730; 81001; 81025; 71046; 71275; 99285; 96360; 96361; 96372; J3420; Q9967

== ENCOUNTER 2018-05-26 20:59 | Emergency (ER) | payer BC ==
[2018-05-26] MEDS ORDERED: SODIUM CHLORIDE 0.9% 1,000 ML IV ONE (22:42)
--- NOTE | 2018-05-26 22:59 | ED ---
Female Urogenital HPI - General Chief complaint: Urogenital Stated complaint: Poss infection Time Seen by Provider: 05/26/18 21:59 Source: patient, RN notes reviewed Mode of arrival: ambulatory Limitations: no limitations - History of Present Illness Initial comments: This is a 33-year-old female who presents to the emergency department with chief complaint of possible infection. Patient reports that she has felt hot and cold all day. She states that she has been shivering today and was experiencing chills even when being covered by 3 blankets. She states that when she woke up from her nap she was sweating profusely. Patient reports having a D&C performed [address] Madrid for a retained placenta. Patient states that she gave two and a half months ago. Patient followed up with Dr. Madrid yesterday and had an ultrasound performed. She was told that her uterus was at 11 cm and is shrinking compared to previous study which indicated this was 14 cm. Patient states she was cleared and told to follow-up in 6 months. Patient states that previously she has not had any vaginal bleeding or cramping. Today she developed light vaginal bleeding that is pinkish in color. She has only used 1 pad since 6 PM this evening. She reports lower abdominal cramping. She took her temperature 2 hours ago and it was 99.5. She called the on-call OSD CLERK and was told to come to the emergency department for workup of infection. She did not speak directly with Dr. Madrid who was aware of her case. She denies any chest pain or shortness of breath, nausea or vomiting, diarrhea or constipation, dysuria or hematuria. Patient is also very concerned for a blood clot. She was seen in the emergency department 2 days ago with chief complaint of chest pain. A total workup was performed and patient's d-dimer was elevated. CTA revealed no evidence for pulmonary embolism. Patient is convinced that because her d-dimer is elevated she has a blood clot somewhere else. She requested ultrasound of her right carotid artery and an MRI of her brain. Patient states that she has been having a pain in the right side of her neck and is concerned for a blood clot there. She states she had this same pain years ago and it resolved on its own. Patient is concerned for a blood clot in the brain as well. She states that she has been feeling off balance with walking. She states that when she turns her head quickly her vision is off and it takes a while for her to adjust. Denies any headaches or dizziness. States she just feels "off balance." - Related Data Home Medications Medication Instructions Recorded Confirmed Levothyroxine Sodium [Synthroid] 112 mcg PO DAILY 08/08/17 05/26/18 Pnv No.95/Ferrous Fum/Folic AC 1 tab PO DAILY 05/07/18 05/26/18 [ Multivitamin Tablet] Previous Rx's Medication Instructions Recorded Ferrous Sulfate [Feosol] 325 mg PO DAILY #30 tab 05/25/18 Allergies Allergy/AdvReac Type Severity Reaction Status Date / Time No Known Allergies Allergy Verified 05/26/18 22:37 Review of Systems ROS Statement: Those systems with pertinent positive or pertinent negative responses have been documented in the HPI. ROS Other: All systems not noted in ROS Statement are negative. Past Medical History Past Medical History: Thyroid Disorder Additional Past Medical History / Comment(s): hypothyroidism, anemia, History of Any Multi-Drug Resistant Organisms: None Reported Past Surgical History: No Surgical Hx Reported Additional Past Surgical History / Comment(s): D&C, Past Anesthesia/Blood Transfusion Reactions: No Reported Reaction Past Psychological History: No Psychological Hx Reported Smoking Status: Never smoker Past Alcohol Use History: None Reported Past Drug Use History: None Reported - Past Family History Mother Family Medical History: No Reported History General Exam - General Exam Comments Initial Comments: General: Awake and alert, well-developed; in no apparent distress. HEENT: Head atraumatic, normocephalic. Pupils are equal, round and reactive to light. Extraocular movements intact. Oropharynx moist without erythema or exudate. Neck: Supple. Normal ROM. Cardiovascular: Regular rate and rhythm. No murmurs, rubs or gallops. Chest symmetrical. Respiratory: Lungs clear to auscultation bilaterally. No wheezes, rales or rhonchi. Normal respiratory effort with no use of accessory muscles. Abdomen: Soft, non-tender, non-distended. No rigidity, rebound or guarding. Normal bowel sounds in all 4 quadrants. Musculoskeletal: Normal ROM, no tenderness bilateral upper and lower extremities. Ambulating normally. Skin: [place], warm and dry without rashes or lesions. Neurological: Alert and oriented x3. CN II-XII grossly intact. Speech is fluent and answers are appropriate. No focal neuro deficits. Psychiatric: Anxious. Multiple perceived complaints. Limitations: no limitations Speculum exam: Present: normal speculum exam, vaginal bleeding (minimal red blood). Absent: erythema, vaginal discharge, cervical discharge By manual exam: Present: normal by manual exam. Absent: cervical motion tenderness, adnexal tenderness, uterine enlargement, uterine tenderness Course Vital Signs 05/26/18 05/27/18 21:09 01:42 Temperature 98.5 F 97.9 F Pulse Rate 100 80 Respiratory 16 18 Rate Blood Pressure 124/71 130/82 O2 Sat by Pulse 98 98 Oximetry Medical Decision Making - Medical Decision Making This is a 33-year-old female who presents to the emergency department with chief complaint of possible infection and a multitude of other complaints. Patient states she had a vaginal delivery 2-1/2 months ago. She reports that 3 weeks ago on Thursday she had a D&C to remove the retained placental product. Surgery was performed by Dr. Madrid. Patient reports that she followed up with Dr. Madrid yesterday and and an ultrasound was obtained. She states that Dr. Madrid told her there was "something small" within the uterus. She states that he told her it could be a blood clot, retained product or polyp. She states he did not seem concerned about it and told her to follow-up in 6 months. Patient states that today she developed mild vaginal bleeding, abdominal cramps and has been alternating between feeling hot and feeling cold. She called the on-call OSD CLERK this evening and they told her to come to the emergency department for evaluation. Patient is very anxious. She is overly concerned about what Dr. Madrid saw on the ultrasound. Patient is also concerned because she has felt "off balance." She requested ultrasound of her carotid arteries and an MRI of her brain. Patient is demonstrating no physical signs to necessitate these tests. She has no risk factors for a stroke, which is what she is concerned about. Patient is also concerned because her d-dimer was elevated a few days ago and a CTA was performed which ruled out a pulmonary embolism. Patient is adamant that if the chest CT did not show a blood clot within the lungs, there must be a blood clot elsewhere. Had a lengthy discussion with patient regarding her concerns. Laboratory studies were obtained which revealed no significant abnormalities. Pelvic examination revealed no cervical or adnexal tenderness and uterus is firm and non-tender. Patient evaluated by attending physician, Dr. Ambriz. A transvaginal ultrasound was obtained which revealed a normal uterus and endometrium. Findings were discussed with patient at bedside. Instructed patient to follow- up with her OSD CLERK. Patient requests a referral to another OSD CLERK group for a second opinion. She is provided with Dr. Raymundo's contact information. Vital signs are stable and patient is in no acute distress. She will be discharged home at this time. She is in agreement with plan and voices understanding. All questions were answered. - Lab Data Result diagrams: 05/26/18 23:04 05/26/18 23:04 Lab Results 05/26/18 05/26/18 05/26/18 Range/Units 23:04 23:04 23:04 WBC 8.9 (3.8-10.6) k/uL RBC 4.78 (3.80-5.40) m/uL Hgb 12.3 (11.4-16.0) gm/dL Hct 38.8 (34.0-46.0) % MCV 81.2 (80.0-100.0) fL MCH 25.8 (25.0-35.0) pg MCHC 31.8 (31.0-37.0) g/dL RDW 15.7 H (11.5-15.5) % Plt Count 243 (150-450) k/uL Neutrophils % 70 % Lymphocytes % 22 % Monocytes % 4 % Eosinophils % 1 % Basophils % 0 % Neutrophils # 6.2 (1.3-7.7) k/uL Lymphocytes # 2.0 (1.0-4.8) k/uL Monocytes # 0.4 (0-1.0) k/uL Eosinophils # 0.1 (0-0.7) k/uL Basophils # 0.0 (0-0.2) k/uL Sodium 140 (137-145) mmol/L Potassium 4.6 (3.5-5.1) mmol/L Chloride 106 (98-107) mmol/L Carbon Dioxide 25 (22-30) mmol/L Anion Gap 9 mmol/L BUN 19 H (7-17) mg/dL Creatinine 0.55 (0.52-1.04) mg/dL Est GFR (CKD-EPI)AfAm >90 (>60 ml/min/1.73 sqM) Est GFR (CKD-EPI)NonAf >90 (>60 ml/min/1.73 sqM) Glucose 103 H (74-99) mg/dL Calcium 9.4 (8.4-10.2) mg/dL Total Bilirubin 0.3 (0.2-1.3) mg/dL AST 29 (14-36) U/L ALT 44 (9-52) U/L Alkaline Phosphatase 94 (38-126) U/L Total Protein 7.4 (6.3-8.2) g/dL Albumin 4.3 (3.5-5.0) g/dL Urine Color Light Yellow Urine Appearance Clear (Clear) Urine pH 5.5 (5.0-8.0) Ur Specific [place] 1.012 (1.001-1.035) Urine Protein Negative (Negative) Urine Glucose (UA) Negative (Negative) Urine Ketones Negative (Negative) Urine Blood Large H (Negative) Urine Nitrite Negative (Negative) Urine Bilirubin Negative (Negative) Urine Urobilinogen <2.0 (<2.0) mg/dL Ur Leukocyte Esterase Moderate H (Negative) Urine RBC 104 H (0-5) /hpf Urine WBC 26 H (0-5) /hpf Ur Squamous Epith Cells 3 (0-4) /hpf Urine Mucus Rare H (None) /hpf - Radiology Data Radiology results: report reviewed Transvaginal ultrasound impression: No evidence of ovarian torsion. Normal uterus and endometrium. Disposition Clinical Impression: Vaginal bleeding, Pelvic pain Disposition: HOME SELF-CARE Condition: Good Instructions: Pelvic Pain in Women (ED) Additional Instructions: Please follow up with primary care provider within 1-2 days. Return to emergency department if symptoms should worsen or any concerns arise. Is patient prescribed a controlled substance at d/c from ED?: No Referrals: Kath Ramirez III, MD [Primary Care Provider] - 1-2 days Delores Raymundo MD [STAFF PHYSICIAN] - 1-2 days Time of Disposition: 02:07
[2018-05-26 23:25] LABS: Basophils % (A) 0 %; Eosinophils # (A) 0.1 k/uL (0-0.7); Eosinophils % (A) 1 %; HCT 38.8 % (34.0-46.0); HGB 12.3 gm/dL (11.4-16.0); Lymphocytes % (A) 22 %; MCH 25.8 pg (25.0-35.0); MCHC 31.8 g/dL (31.0-37.0); MCV 81.2 fL (80.0-100.0); Mean Platelet Volume 7.4; Monocytes # (A) 0.4 k/uL (0-1.0); Monocytes % (A) 4 %; Neutrophils # (A) 6.2 k/uL (1.3-7.7); Neutrophils % (A) 70 %; Platelet Count 243 k/uL (150-450); RBC 4.78 m/uL (3.80-5.40); RDW 15.7 % (11.5-15.5); WBC 8.9 k/uL (3.8-10.6)
[2018-05-26 23:33] LABS: Appearance,Urine Clear (Clear); Bilirubin,Urine Negative (Negative); Blood,Urine Large (Negative); Color,Urine Light Yellow; Glucose,Urine (UA) Negative (Negative); Ketones,Urine Negative (Negative); Leukocyte Esterase,Urine Moderate (Negative); Mucus,Urine Rare /hpf; Nitrite,Urine Negative (Negative); PH, Urine 5.5 (5.0-8.0); Protein,Urine Negative (Negative); RBC,Urine 104 /hpf (0-5); Specific Gravity,Urine 1.012 (1.001-1.035); Squamous Epithelial Cell,Urine 3 /hpf (0-4); Urobilinogen,Urine <2.0 mg/dL (<2.0); WBC,Urine 26 /hpf (0-5)
[2018-05-26 23:37] LABS: ALT 44 U/L (9-52); AST 29 U/L (14-36); Albumin 4.3 g/dL (3.5-5.0); Alkaline Phosphatase 94 U/L (38-126); Anion Gap 9 mmol/L; Blood Urea Nitrogen 19 mg/dL (7-17); Calcium 9.4 mg/dL (8.4-10.2); Carbon Dioxide 25 mmol/L (22-30); Chloride 106 mmol/L (98-107); Glucose 103 mg/dL (74-99); Potassium 4.6 mmol/L (3.5-5.1); Sodium 140 mmol/L (137-145); Total Bilirubin 0.3 mg/dL (0.2-1.3); Total Protein 7.4 g/dL (6.3-8.2)
--- NOTE | 2018-05-27 01:30 | US ---
EXAMINATION TYPE: US transvaginal DATE OF EXAM: 05/27/2018 COMPARISON: NONE CLINICAL HISTORY: cramp; vaginal bleed. Pain had D&C x3 weeks ago for retained placenta. TECHNIQUE: Transvaginal (TV). EXAM MEASUREMENTS: Uterus: 8.6 x 5.1 x 5.8 cm Endometrial Stripe: 0.7 cm Right Ovary: 3.1 x 2.5 x 1.6 cm Left Ovary: 2.9 x 2.2 x 1.8 cm 1. Uterus: Anteverted wnl 2. Endometrium: Hypoechoic area .4mm 3. Right Ovary: Follicles seen 4. Left Ovary: Follicles seen. Spectral, color and waveform doppler imaging shows good arterial and venous flow within the ovaries ; there is no evidence for ovarian torsion. 5. Bilateral Adnexa: wnl 6. Posterior cul-de-sac: wnl IMPRESSION: No evidence of ovarian torsion. Normal uterus and endometrium.
[2018-05-27 01:43] VITALS: BP 130/82; PULSE 80; RESP 18; TEMP 97.9
== END 2018-05-27 02:14 | disposition home or self-care (01) ==
LOC: EC 20:59
DX: N93.9 Abnormal uterine and vaginal bleeding, unspecified (principal); R10.2 Pelvic and perineal pain; M54.2 Cervicalgia; E03.9 Hypothyroidism, unspecified; D64.9 Anemia, unspecified; Z79.899 Other long term (current) drug therapy; Z98.890 Other specified postprocedural states
CPT/HCPCS: 36415; 76830; 80053; 81001; 85025; 93975; 96360; 99284

== ENCOUNTER 2018-05-29 15:33 | Observation (INO) | payer BC ==
[2018-05-29] MEDS ORDERED: SODIUM CHLORIDE 0.9% 1,000 ML IV STA (16:28)
[2018-05-29] MEDS ORDERED: LORazepam 2 MG/ML INJ IV STA ×2 (16:28→16:56)
[2018-05-29 16:46] LABS: Basophils % (A) 0 %; Eosinophils # (A) 0.1 k/uL (0-0.7); Eosinophils % (A) 1 %; HCT 38.5 % (34.0-46.0); HGB 12.2 gm/dL (11.4-16.0); Hypochromasia Slight; Lymphocytes # (A) 1.7 k/uL (1.0-4.8); Lymphocytes % (A) 30 %; MCH 25.9 pg (25.0-35.0); MCHC 31.6 g/dL (31.0-37.0); Mean Platelet Volume 8.6; Monocytes # (A) 0.3 k/uL (0-1.0); Monocytes % (A) 6 %; Neutrophils # (A) 3.2 k/uL (1.3-7.7); Neutrophils % (A) 59 %; Platelet Count 148 k/uL (150-450); RBC 4.69 m/uL (3.80-5.40); RDW 15.8 % (11.5-15.5); WBC 5.5 k/uL (3.8-10.6)
--- NOTE | 2018-05-29 16:54 | ED ---
General Adult HPI - General Chief complaint: Dizziness Stated complaint: ANXIETY, STATES HEAD PAIN Time Seen by Provider: 05/29/18 15:56 Source: patient, EMS, RN notes reviewed, old records reviewed Mode of arrival: EMS Limitations: no limitations - History of Present Illness Initial comments: Chief complaint and history of present illness this is a 33-year-old female here with her third visit in approximately 5 or 6 days. Patient reports she continues to have sensation of chest heaviness and pressure with elevated heart rate. At home she had a regular pressure measurements 131/125. Upon arrival to emergency room her blood pressures 139/95. Patient states she has a sensation of pressure on the right side of her head with some dizziness. When she turns quickly to the right she feels as though her brain does not catch up to her head movement for approximately one or 2 seconds. She states she slightly off balance. - Related Data Home Medications Medication Instructions Recorded Confirmed Levothyroxine Sodium [Synthroid] 112 mcg PO DAILY 08/08/17 05/29/18 Pnv No.95/Ferrous Fum/Folic AC 1 tab PO DAILY 05/07/18 05/29/18 [ Multivitamin Tablet] Allergies Allergy/AdvReac Type Severity Reaction Status Date / Time No Known Allergies Allergy Verified 05/29/18 15:53 Review of Systems ROS Statement: Those systems with pertinent positive or pertinent negative responses have been documented in the HPI. Review of systems. Patient is anxious, states she has cessation a rapid heartbeat and some chest heaviness which increases with an increased heart rate. No significant visual acuity changes. Complains of some nondescript sensation or pressure on the right side of her head. Following sensation when she turns her head quickly to the right. No nausea no vomiting. All systems reviewed Recent past history includes having had a D&C 3 weeks ago. The patient had delivered a baby approximately 2 and half months ago. She states these symptoms and irregular feelings started soon after delivery. She has seen her SCREW CUTTER recently. She had an ultrasound was reported to be negative just 2 days ago here in the emergency room. Family history noncontributory, no known ALLERGIES. Nonsmoker nondrinker. ROS Other: All systems not noted in ROS Statement are negative. Past Medical History Past Medical History: Thyroid Disorder Additional Past Medical History / Comment(s): hypothyroidism, anemia, History of Any Multi-Drug Resistant Organisms: None Reported Past Surgical History: No Surgical Hx Reported Additional Past Surgical History / Comment(s): D&C, Past Anesthesia/Blood Transfusion Reactions: No Reported Reaction Past Psychological History: No Psychological Hx Reported Smoking Status: Never smoker Past Alcohol Use History: None Reported Past Drug Use History: None Reported - Past Family History Mother Family Medical History: No Reported History General Exam - General Exam Comments Initial Comments: General: The patient is awake and alert, presents with a complaint of discomfort or fullness to the right side of her head some dizziness with increased problems when she looks hard to the right. No associated nausea. Some chest palpitations and pressure in her chest on again off again with increased heart rate. Slight balance problems. She reports she's been on again off again for the past 2 and half months since having had her baby. The patient did have an elevated d-dimer several days ago CT of the chest ruled out PE. Vital signs temp 98.1 pulse initially 119 down to 100 during examination respiratory rate 18 blood pressure 139/95. Pulse ox R percent room air. Eye: Pupils are equal, round and reactive to light, extra-ocular movements are intact ; there is normal conjunctiva bilaterally. No signs of icterus. Ears, nose, mouth and throat: There are moist mucous membranes and no oral lesions. Neck: The neck is supple, there is no tenderness, no carotid bruit Cardiovascular: Sinus tachycardia between 100-110. No murmur appreciated. Respiratory: Lungs are clear to auscultation, respirations are non-labored, breath sounds are equal. No wheezes, stridor, rales, or rhonchi. Gastrointestinal: Soft, non-distended, non-tender abdomen without masses or organomegaly noted. There is no rebound or guarding present. No CVA tenderness. Bowel sounds are unremarkable. Back: There is no tenderness to palpation in the midline. There is no obvious deformity. No rashes noted. Musculoskeletal: Normal ROM, no tenderness, There is no pedal edema. There is no calf tenderness or swelling. Sensation intact. Pulses equal bilaterally 2+. Neurological: CN II-XII intact, There are no obvious motor or sensory deficits. Coordination appears grossly intact. Speech is normal. No focal or lateralizing findings. Subjective complaint of sensation of fullness to the right side of her head. Skin: Skin is warm and dry and no rashes or lesions are noted. Psychiatric: Patient presents very anxious Limitations: no limitations Course Vital Signs 05/29/18 15:39 Temperature 98.1 F Pulse Rate 119 H Respiratory 18 Rate Blood Pressure 139/95 O2 Sat by Pulse 100 Oximetry EKG Findings - EKG Comments: EKG Findings:: EKG was done and reviewed at 1553 showing sinus tachycardia rate 107. Otherwise no acute ST elevation , ventricular rate 107 MD interval was 152 QRS 82 QT [address] Castaneda Medical Decision Making - Medical Decision Making Medical decision making; is a 33-year-old female here with her third visit in approximately 5 days with a similar complaint of pressure to the right side of her head, mild chest heaviness or pressure and symptomatically palpitations. Labs show white count of 5.5 hemoglobin 12 hematocrit of 38 potassium 4.5. BUN 22 creatinine 0.5 a GFR greater than 90. Glucose 207. Cardiac enzymes, troponin within normal limits. CT of the brain was done and reviewed by radiologist his findings are there is no evidence of acute intracranial hemorrhage, acute ischemic changes, mass mass effect or extra-axial fluid collection. There is no effacement of cerebral sulci or basal subarachnoid sisters. There is no hydrocephalus. There is no midline shift. [place]-white matter distinction is preserved. Paranasal sinuses mastoid air cells are well pneumatized. Orbits and globes are intact. Impression; no acute intracranial abnormality seen. As read by Dr. Low X-ray of the chest was done reviewed by radiologist his findings are the cardiomediastinal silhouette, aorta, and pulmonary vasculature within normal limits. Lungs and pleural spaces are clear. Impression; no acute cardiopulmonary process. As read by Dr. Low I discussed that she had with the patient's laboratory results as well as CAT scan reports. Patient reports that she isn't feeling quite is anxious but heart rate still proximal and 110. The plan the patient be admitted to the hospitalist for further evaluation. Discussed case with Dr. romo, and he will determine further evaluation and lab tests. - Lab Data Result diagrams: 05/29/18 16:20 05/29/18 16:20 Lab Results 05/29/18 05/29/18 05/29/18 Range/Units 16:20 16:20 16:20 WBC 5.5 (3.8-10.6) k/uL RBC 4.69 (3.80-5.40) m/uL Hgb 12.2 (11.4-16.0) gm/dL Hct 38.5 (34.0-46.0) % MCV 82.0 (80.0-100.0) fL MCH 25.9 (25.0-35.0) pg MCHC 31.6 (31.0-37.0) g/dL RDW 15.8 H (11.5-15.5) % Plt Count 148 L (150-450) k/uL Neutrophils % 59 % Lymphocytes % 30 % Monocytes % 6 % Eosinophils % 1 % Basophils % 0 % Neutrophils # 3.2 (1.3-7.7) k/uL Lymphocytes # 1.7 (1.0-4.8) k/uL Monocytes # 0.3 (0-1.0) k/uL Eosinophils # 0.1 (0-0.7) k/uL Basophils # 0.0 (0-0.2) k/uL Hypochromasia Slight Sodium 137 (137-145) mmol/L Potassium 4.5 (3.5-5.1) mmol/L Chloride 102 (98-107) mmol/L Carbon Dioxide 25 (22-30) mmol/L Anion Gap 10 mmol/L BUN 22 H (7-17) mg/dL Creatinine 0.58 (0.52-1.04) mg/dL Est GFR (CKD-EPI)AfAm >90 (>60 ml/min/1.73 sqM) Est GFR (CKD-EPI)NonAf >90 (>60 ml/min/1.73 sqM) Glucose 207 H (74-99) mg/dL Calcium 9.5 (8.4-10.2) mg/dL Total Bilirubin 0.4 (0.2-1.3) mg/dL AST 40 H (14-36) U/L ALT 38 (9-52) U/L Alkaline Phosphatase 88 (38-126) U/L Total Creatine Kinase 51 (30-135) U/L CK-MB (CK-2) 0.4 (0.0-2.4) ng/mL CK-MB (CK-2) Rel Index 0.8 Troponin I <0.012 (0.000-0.034) ng/mL Total Protein 7.7 (6.3-8.2) g/dL Albumin 4.3 (3.5-5.0) g/dL Disposition Clinical Impression: Chest pain, Intermittent palpitations Disposition: ADMITTED IP TO THIS HOSP Condition: Fair Is patient prescribed a controlled substance at d/c from ED?: No Referrals: Kath Ramirez III, MD [Primary Care Provider] - 1-2 days
[2018-05-29 16:56] LABS: ALT 38 U/L (9-52); AST 40 U/L (14-36); Albumin 4.3 g/dL (3.5-5.0); Alkaline Phosphatase 88 U/L (38-126); Anion Gap 10 mmol/L; Blood Urea Nitrogen 22 mg/dL (7-17); Calcium 9.5 mg/dL (8.4-10.2); Carbon Dioxide 25 mmol/L (22-30); Chloride 102 mmol/L (98-107); Glucose 207 mg/dL (74-99); Potassium 4.5 mmol/L (3.5-5.1); Sodium 137 mmol/L (137-145); Total Bilirubin 0.4 mg/dL (0.2-1.3); Total Protein 7.7 g/dL (6.3-8.2)
[2018-05-29 17:00] LABS: Creatine Kinase 51 U/L (30-135)
[2018-05-29 17:13] LABS: Creatine Kinase MB 0.4 ng/mL (0.0-2.4); Troponin I <0.012 ng/mL (0.000-0.034)
--- NOTE | 2018-05-29 17:13 | CT ---
EXAMINATION TYPE: CT brain wo con DATE OF EXAM: 05/29/2018 COMPARISON: None HISTORY: 33-year-old female right-sided Head pressure, dizziness TECHNIQUE: Examination was done in axial plane without intravenous contrast. Coronal and sagittal r econstructions performed. CT DLP: 973.5 mGycm Automated exposure control for dose reduction was used. FINDINGS: There is no evidence of acute intracranial hemorrhage, acute ischemic changes, mass, mass-effect, or extra-axial fluid collection. There is no effacement of cerebral sulci or basal subarachnoid cister ns. There is no hydrocephalus. There is no midline shift. [place]-white matter distinction is preserv ed. Paranasal sinuses and mastoid air cells are well pneumatized. Orbits and globes are intact. IMPRESSION: No acute intracranial abnormality seen.
--- NOTE | 2018-05-29 17:27 | XR ---
EXAMINATION TYPE: XR chest 2V DATE OF EXAM: 05/29/2018 COMPARISON: 05/24/2018 HISTORY: 33-year-old female palpitations, shortness of breath TECHNIQUE: PA and lateral views FINDINGS: The cardiomediastinal silhouette, aorta, and pulmonary vasculature are within normal limits. Lungs an d pleural spaces are clear. IMPRESSION: No acute cardiopulmonary process.
[2018-05-29] MEDS ORDERED: ACETAMINOPHEN TAB 325 MG TAB PO PRN (18:03)
[2018-05-29] MEDS ORDERED: NALOXONE 0.4 MG/ML 1 ML VIAL IV PRN (18:03)
[2018-05-29] MEDS: SODIUM CHLORIDE 0.9% 1,000 ML IV SCH (19:38)
[2018-05-29 21:19] VITALS: BMI 31.3
[2018-05-29 22:14] LABS: Creatine Kinase 42 U/L (30-135)
[2018-05-29 22:24] LABS: Creatine Kinase MB 0.3 ng/mL (0.0-2.4)
[2018-05-29 22:28] LABS: Troponin I <0.012 ng/mL (0.000-0.034)
[2018-05-30] MEDS: LEVOTHYROXINE 112 MCG TAB PO SCH (05:35)
[2018-05-30 06:24] LABS: Creatine Kinase 43 U/L (30-135)
[2018-05-30 06:37] LABS: Creatine Kinase MB 0.3 ng/mL (0.0-2.4); Troponin I <0.012 ng/mL (0.000-0.034)
--- NOTE | 2018-05-30 08:30 | P.CRDCN ---
History of Present Illness Consult date: 05/30/18 Chief complaint: Dizziness and lightheadedness History of present illness: This is a 33-year-old female patient with no significant past medical history presented to the emergency room complaining off dizziness and lightheadedness as well as chest discomfort. This is the third ER visit to the patient. For the last few visits she was sent home from the emergency room. The patient is and she had her baby about 2 months ago. Since then she has not been feeding well. She describes symptoms of discomfort in the chest as a pressure on the chest without any radiation and without any associated symptoms. But lately she has been experiencing symptoms of heart racing and fluttering, the symptoms seems to be intermittent, associated with dizziness and lightheadedness and flush feeling in the face. No syncope. The patient does not have any CAD, hypertension, or dyslipidemia. No major cardiovascular surgery before. She does not smoke or drink alcohol. She does have a family history of coronary artery disease with her father. When she presented to the hospital the EKG showed sinus rhythm without any significant ST or T-wave abnormalities. The chest x-ray did not show any acute abnormalities. A computed tomography scan of the brain came in to be unremarkable as well. The patient did undergo an orthostatic blood pressure check but her heart rate and blood pressure went up with standing. The cardiac enzymes were checked and came in to be unremarkable. I am concerned about cardiomyopathy. I will obtain an echocardiogram was Doppler to assess LV function. The TSH was checked as an outpatient and came in to be unremarkable. Also I will obtain a tilt table test on her Past Medical History Past Medical History: Thyroid Disorder Additional Past Medical History / Comment(s): hypothyroidism, anemia, History of Any Multi-Drug Resistant Organisms: None Reported Past Surgical History: No Surgical Hx Reported Additional Past Surgical History / Comment(s): D&C, Past Anesthesia/Blood Transfusion Reactions: No Reported Reaction Smoking Status: Never smoker - Past Family History Mother Family Medical History: No Reported History Father Family Medical History: Myocardial Infarction ([place]) Medications and Allergies Home Medications Medication Instructions Recorded Confirmed Type Levothyroxine Sodium [Synthroid] 112 mcg PO DAILY 08/08/17 05/29/18 History Pnv No.95/Ferrous Fum/Folic AC 1 tab PO DAILY 05/07/18 05/29/18 History [ Multivitamin Tablet] Ferrous Sulfate [Iron (65 MG 325 mg PO DAILY 05/29/18 05/29/18 History Elemental)] Allergies Allergy/AdvReac Type Severity Reaction Status Date / Time No Known Allergies Allergy Verified 05/29/18 20:56 Physical Exam Vitals: Vital Signs Temp Pulse Pulse Pulse Pulse Pulse Resp 05/30/18 07:24 05/30/18 04:00 18 05/30/18 03:43 98.3 F 103 H 126 H 94 18 05/29/18 23:49 16 05/29/18 23:31 98.7 F 114 H 16 05/29/18 21:00 16 05/29/18 20:57 98.4 F 104 H 16 05/29/18 20:00 114 H 18 05/29/18 19:00 112 H 20 05/29/18 18:58 111 H 18 05/29/18 15:39 98.1 F 119 H 18 BP BP BP BP BP Pulse Ox 05/30/18 07:24 97 05/30/18 04:00 05/30/18 03:43 145/97 156/90 111/73 99 05/29/18 23:49 05/29/18 23:31 117/67 100 05/29/18 21:00 05/29/18 20:57 143/76 97 05/29/18 20:00 124/84 97 05/29/18 19:00 128/85 97 18 18:58 128/85 97 05/29/18 15:39 139/95 100 Intake and Output 05/29/18 05/30/18 05/30/18 22:59 06:59 14:59 Other: # Voids 1 1 Weight 90.7 kg - Constitutional General appearance: no acute distress - Respiratory Respiratory: bilateral: CTA - Cardiovascular Rhythm: regular Heart sounds: normal: S1, S2 Results 05/29/18 16:20 05/29/18 16:20 Cardiac Enzymes 05/29/18 05/29/18 05/29/18 Range/Units 16:20 16:20 21:41 AST 40 H (14-36) U/L CK-MB (CK-2) 0.4 0.3 (0.0-2.4) ng/mL Troponin I <0.012 <0.012 (0.000-0.034) ng/mL 05/30/18 Range/Units 05:44 AST (14-36) U/L CK-MB (CK-2) 0.3 (0.0-2.4) ng/mL Troponin I <0.012 (0.000-0.034) ng/mL CBC 05/29/18 Range/Units 16:20 WBC 5.5 (3.8-10.6) k/uL RBC 4.69 (3.80-5.40) m/uL Hgb 12.2 (11.4-16.0) gm/dL Hct 38.5 (34.0-46.0) % Plt Count 148 L (150-450) k/uL Comprehensive Metabolic Panel 05/29/18 Range/Units 16:20 Sodium 137 (137-145) mmol/L Potassium 4.5 (3.5-5.1) mmol/L Chloride 102 (98-107) mmol/L Carbon Dioxide 25 (22-30) mmol/L BUN 22 H (7-17) mg/dL Creatinine 0.58 (0.52-1.04) mg/dL Glucose 207 H (74-99) mg/dL Calcium 9.5 (8.4-10.2) mg/dL AST 40 H (14-36) U/L ALT 38 (9-52) U/L Alkaline Phosphatase 88 (38-126) U/L Total Protein 7.7 (6.3-8.2) g/dL Albumin 4.3 (3.5-5.0) g/dL Current Medications Generic Name Dose Route Start Last Admin Trade Name Freq PRN Reason Stop Dose Admin Acetaminophen 650 mg 05/29/18 18:03 Tylenol Tab PO Q6HR PRN Mild Pain or Fever > 100.5 Alprazolam 0.25 mg 05/29/18 18:03 Xanax PO Q6HR PRN Anxiety Sodium Chloride 1,000 mls @ 20 mls/hr 05/29/18 16:28 05/29/18 16:54 Saline 0.9% IV 05/30/18 16:27 Not Given .Q24H STA Sodium Chloride 1,000 mls @ 80 mls/hr 05/29/18 18:15 05/29/18 19:38 Saline 0.9% IV 80 mls/hr .[id number] YAS Administration Levothyroxine Sodium 112 mcg 05/30/18 06:30 05/30/18 05:35 Synthroid PO 112 mcg 0630 YAS Administration Multivi/Iron Carb/Fe Sulf/FA/Prenat 1 each 05/30/18 12:00 -U Capsule PO 1200 YAS Naloxone HCl 0.2 mg 05/29/18 18:03 Narcan IV Q2M PRN Opioid Reversal Intake and Output 05/29/18 05/30/18 05/30/18 22:59 06:59 14:59 Other: # Voids 1 1 Weight 90.7 kg 05/29/18 16:20 05/29/18 16:20 Assessment and Plan Assessment: Assessment #1 intermittent episodes of dizziness and lightheadedness and heart racing #2 intermittent episodes of atypical chest discomfort #3 sinus tachycardia #4 state Plan #1 an echocardiogram was Doppler. cardiomyopathy to be ruled out #2 obtain a tilt table test as well #3 start the patient on a small dose of metoprolol beginning tomorrow after the tilt table #4 TSH was checked as an outpatient according to her and came in to be unremarkable #5 probably stress test as an outpatient as well Thank you for allowing us participate in her care and we will continue following up with the patient
[2018-05-30] MEDS: ALPRAZolam 0.25 MG TAB PO PRN (12:43)
[2018-05-30] MEDS: PRENATAL VIT-IRON-FOLIC ACID 1 EACH CAP PO SCH (16:59)
[2018-05-30] MEDS: SODIUM CHLORIDE 0.9% 1,000 ML IV SCH ×2 (20:22→20:23)
[2018-05-31] MEDS ORDERED: IPRATROPIUM-ALBUTEROL 3 ML NEB INHALATION PRN
[2018-05-31] MEDS ORDERED: METOPROLOL TARTRATE 25 MG TAB PO STA (00:25)
[2018-05-31] MEDS: ALPRAZolam 0.25 MG TAB PO PRN (00:30)
[2018-05-31] MEDS: LEVOTHYROXINE 112 MCG TAB PO SCH (06:18)
[2018-05-31] MEDS ORDERED: SODIUM CHLORIDE 0.9% 1,000 ML IV SCH (07:45)
[2018-05-31 08:02] VITALS: RESP 14; TEMP 97.6
--- NOTE | 2018-05-31 10:26 | ECHOF ---
Referral Reason:cp MEASUREMENTS -------- HEIGHT: 170.2 cm WEIGHT: 90.3 kg BP: 132/87 RVIDd: 2.9 cm (< 3.3) IVSd: 1.1 cm (0.6 - 1.1) LVIDd: 4.3 cm (3.9 - 5.3) LVPWd: 1.0 cm (0.6 - 1.1) IVSs: 1.5 cm LVIDs: 3.2 cm LVPWs: 1.3 cm LA Diam: 3.2 cm (2.7 - 3.8) LAESV Index (A-L): 23.01 ml/m Ao Diam: 2.9 cm (2.0 - 3.7) AV Cusp: 1.9 cm (1.5 - 2.6) EPSS: 0.5 cm MV E Yohan: 0.88 m/s MV DecT: 141 ms MV A Yohan: 0.81 m/s MV E/A Ratio: 1.08 MV EF SLOPE: 134.81 mm/s (70 - 150) MV EXCURSION: 1.64 cm (> 18.000) FINDINGS -------- Sinus rhythm. This was a technically good study. The left ventricular size is normal. Left ventricular wall thickness is normal. Overall left vent ricular systolic function is normal with, an EF between 60 - 65 %. The right ventricle is normal in size. Normal LA size by volume 22+/-6 ml/m2. The right atrium is normal in size. The aortic valve is trileaflet and appears structurally normal. There is trace to mild mitral regurgitation. The tricuspid valve appears structurally normal. Trace/mild (physiologic) pulmonic regurgitation. The aortic root size is normal. Normal inferior vena cava with normal inspiratory collapse consistent with estimated right atrial pre ssure of 5 mmHg. There is no pericardial effusion. CONCLUSIONS -------- 1. Sinus rhythm. 2. This was a technically good study. 3. The left ventricular size is normal. 4. Left ventricular wall thickness is normal. 5. Overall left ventricular systolic function is normal with, an EF between 60 - 65 %. 6. The right ventricle is normal in size. 7. Normal LA size by volume 22+/-6 ml/m2. 8. The right atrium is normal in size. 9. The aortic valve is trileaflet and appears structurally normal. 10. There is trace to mild mitral regurgitation. 11. The tricuspid valve appears structurally normal. 12. Trace/mild (physiologic) pulmonic regurgitation. 13. The aortic root size is normal. 14. Normal inferior vena cava with normal inspiratory collapse consistent with estimated right atrial pressure of 5 mmHg. 15. There is no pericardial effusion. SUPERVISOR TYPE BAR AND SEGMENT: RIMA Johnson
--- NOTE | 2018-05-31 11:26 | P.PN ---
Subjective This is a pleasant 33-year-old female past medical history significant for hypothyroidism. She underwent a tilt table test today which indicated postural tachycardia with normal blood pressure response. Echocardiogram obtained reveals preserved left ventricular systolic function with ejection fraction 60-65%. Laboratory data reviewed. Blood pressure 132/ 91 heart rate 95 afebrile maintaining oxygen saturation on nasal cannula. Last night while she was laying in bed heart rate went up to the 150s, telemetry indicates sinus tachycardia. During that time she felt a fullness in her throat and her heart racing. Metoprolol 25 mg was given. Objective - Vital Signs Vital signs: Vital Signs Temp 97.6 F 05/31/18 08:01 Pulse 95 05/31/18 08:01 Resp 14 05/31/18 08:01 BP 132/91 05/31/18 08:01 Pulse Ox 100 05/31/18 08:01 Intake & Output 05/30/18 05/31/18 05/31/18 18:59 06:59 18:59 Intake Total 680 Balance 680 Intake: Oral 480 Other 200 Other: Voiding Method Toilet Toilet Toilet # Voids 1 - Exam GENERAL: Well-appearing, well-nourished and in no acute distress. NECK: Supple without JVD or thyromegaly. LUNGS: Breath sounds clear to auscultation bilaterally. Respiration equal and unlabored. No wheezes, rales or rhonchi. HEART: Regular rate and rhythm without murmurs, rubs or gallops. S1 and S2 heard. EXTREMITIES: Normal range of motion, no edema. No clubbing or cyanosis. Peripheral pulses intact. - Labs CBC & Chem 7: 05/29/18 16:20 05/29/18 16:20 Labs: Abnormal Lab Results - Last 24 Hours (Table) 05/29/18 Range/Units 21:41 Iron 33 L (50-170) ug/dL Assessment and Plan Assessment: ASSESSMENT Postural orthostatic tachycardia syndrome Sinus tachycardia Hypothyroidism PLAN Start nadolol 10 mg daily, can increase to 20 mg after one week if continues to be symptomatic. Lengthy discussion had with the patient regarding increased salt intake, increased oral intake of water and importance of regular daily exercise. Follow up with Dr. Ta in 2-3 weeks. Nurse Practitioner note has been reviewed, I agree with a documented findings and plan of care. Patient was seen and examined.
[2018-05-31] MEDS ORDERED: NADOLOL 20 MG TAB PO SCH (11:30)
[2018-05-31 12:10] VITALS: BP 131/92
[2018-05-31 12:14] LABS: Basophils % (A) 0 %; Eosinophils # (A) 0.1 k/uL (0-0.7); Eosinophils % (A) 1 %; HCT 40.4 % (34.0-46.0); HGB 12.4 gm/dL (11.4-16.0); Lymphocytes % (A) 26 %; MCHC 30.7 g/dL (31.0-37.0); MCV 81.5 fL (80.0-100.0); Mean Platelet Volume 7.2; Monocytes # (A) 0.5 k/uL (0-1.0); Monocytes % (A) 6 %; Neutrophils % (A) 64 %; Platelet Count 282 k/uL (150-450); RBC 4.96 m/uL (3.80-5.40); RDW 15.8 % (11.5-15.5); WBC 7.9 k/uL (3.8-10.6)
[2018-05-31 12:22] VITALS: PULSE 94
[2018-05-31 12:23] LABS: Anion Gap 8 mmol/L; Blood Urea Nitrogen 15 mg/dL (7-17); Calcium 9.5 mg/dL (8.4-10.2); Carbon Dioxide 26 mmol/L (22-30); Chloride 107 mmol/L (98-107); Glucose 99 mg/dL (74-99); Potassium 4.5 mmol/L (3.5-5.1); Sodium 141 mmol/L (137-145)
[2018-05-31] MEDS: PRENATAL VIT-IRON-FOLIC ACID 1 EACH CAP PO SCH (12:37)
--- NOTE | 2018-05-31 12:56 | P.PN ---
Progress Note - Text Patient interviewed and examined Her symptoms began when she was in her teenage years in high school he did but she could but is patent sports she states she tried to avoid aerobic exercise because she didn't like it. On more detailed questioning she stated that her heart would (trace very rapidly when she would exercise urine with minimal exercise and therefore should avoid it. Aerobic exercise would make her tired. Even when climbing stairs in high school her heart rate response to average exercise was rather brisk In the mid 20s and 30s she also had GI symptoms. She has been investigated for esophageal problems and has had an endoscopy and possibly even a barium study about 3-4 years back. She feels that the food gets stuck in her upper esophagus /throat. She feels she has a lump there and the food goes down slowly. Over the years she also has had constipation and bloating and occasionally GERD-like symptoms. But her upper esophageal symptoms are quite prominent and predated her current Since the time of conception and particularly after delivery her symptoms have worsened. In particular her cardiac symptoms have worsened. She gets short of breath palpitations discomfort and tightening in the throat and she feels she is having a heart attack pounding in her chest even at rest. Is very similar to what she would experience as a young adult as well as a teenager but now it occurs even at rest She also has some skin symptoms heart and cold symptoms and her hands are always cold She also has a sensation of jitteriness and wobbliness as if she is going to fall CT of her brain is normal noncontrast Chest x-ray is within normal limits 2-D echo and Doppler study shows normal LV size and function and normal valves Twelve-lead ECG shows sinus rhythm normal AK narrow QRS and normal ST segments Tilt table test is consistent with orthostatic intolerance Supine heart rates in the 80s Heart rate in the upright position increased by about 20-25 beats in the first 10 minutes and later up to 30 beats beyond 10 minutes at which point she felt lightheaded and flushed Clinical diagnosis Postural tachycardia syndrome With GI symptoms, upper as well as lower GI, for many years Intolerance to aerobic exercise since high school years Some skin symptoms With and state her cardiac symptoms have flared up and become quite prominent She is worried that she is going to of a heart attack I had a very detailed discussion with her regarding her condition and assured her that it was not a primary cardiac condition I did explain postural tachycardia syndrome as well as dysautonomic states to her. Recommendation Increase fluid intake throughout the day Increase salt intake throughout the day Endurance training, strength training of the lower extremities as well as core body I explained how she should go about doing it Consider low dose nadolol for symptomatic relief. She understands that this will not cure the condition Serum metanephrines TSH
--- NOTE | 2018-05-31 12:59 | P.PCN ---
Preoperative Diagnosis: Diagnosis Palpitations and dizzy spells and presyncope Twelve-lead ECG performed yesterday showed sinus rhythm normal card intervals Tilt table test per protocol Baseline blood pressure 126/83 mmHg Baseline heart rate 81 beats a minute Patient was tilted upright at an angle of 70 per protocol. There was an immediate increase in her heart rate to 104 beats a minute. After about 15 minutes or so heart rate increased further and the maximum heart rate achieved was about 128 beats a minute at which time she was lightheaded and flushed. No syncope Blood pressure remained in the normal range and stable When she was laid supine her heart rate dropped down to 82 beats a minute Impression Orthostatic intolerance
--- NOTE | 2018-05-31 13:11 | P.DS ---
Providers Date of admission: 05/29/18 18:04 Attending physician: Delores Machado Consults: 05/29/18 18:03 Consult Physician Stat Consulting Provider: Jai Recinos Consult Reason/Comments: Palpitations, chest discomfort Do you want consulting provider notified?: Yes Primary care physician: [facility] Course: 33-year-old female past medical history significant for hypothyroidism. She underwent a tilt table test today which indicated postural tachycardia with normal blood pressure response. Echocardiogram obtained reveals preserved left ventricular systolic function with ejection fraction 60- 65%. Laboratory data reviewed. Blood pressure 132/91 heart rate 95 afebrile maintaining oxygen saturation on nasal cannula. Last night while she was laying in bed heart rate went up to the 150s, telemetry indicates sinus tachycardia. During that time she felt a fullness in her throat and her heart racing. Metoprolol 25 mg was given. Ex Patient was diagnosed with postural orthostatic tachycardia syndrome and patient is being discharged on Nadolol. PHYSICAL EXAMINATION: GENERAL: The patient is alert and oriented x3, not in any acute distress. Well developed, well nourished. HEENT: Pupils are round and equally reacting to light. EOMI. No scleral icterus. No conjunctival pallor. Normocephalic, atraumatic. No pharyngeal erythema. No thyromegaly. CARDIOVASCULAR: S1 and S2 present. No murmurs, rubs, or gallops. PULMONARY: Chest is clear to auscultation, no wheezing or crackles. ABDOMEN: Soft, nontender, nondistended, normoactive bowel sounds. No palpable organomegaly. MUSCULOSKELETAL: No joint swelling or deformity. EXTREMITIES: No cyanosis, clubbing, or pedal edema. NEUROLOGICAL: Gross neurological examination did not reveal any focal deficits. SKIN: No rashes. For his chronic medical problems hospitalization course please refer to dictation from Dr. Chua from yesterday Patient Condition at Discharge: Fair Plan - Discharge Summary New Discharge Prescriptions: New Nadolol [Corgard] 10 mg PO DAILY #30 tab Continue Levothyroxine Sodium [Synthroid] 112 mcg PO DAILY Pnv No.95/Ferrous Fum/Folic AC [ Multivitamin Tablet] 1 tab PO DAILY Ferrous Sulfate [Iron (65 MG Elemental)] 325 mg PO DAILY Discharge Medication List Levothyroxine Sodium [Synthroid] 112 mcg PO DAILY 08/08/17 [History] Pnv No.95/Ferrous Fum/Folic AC [ Multivitamin Tablet] 1 tab PO DAILY [History] Ferrous Sulfate [Iron (65 MG Elemental)] 325 mg PO DAILY 05/29/18 [History] Nadolol [Corgard] 10 mg PO DAILY #30 tab 05/31/18 [Rx] Follow up Appointment(s)/Referral(s): Kaleb Ta MD [STAFF PHYSICIAN] - 2 Weeks Kath Ramirez III, MD [Primary Care Provider] - 1-2 days
--- NOTE | 2018-05-31 14:17 | P.HPIM ---
History of Present Illness H&P Date: 05/30/18 Chief Complaint: Dizziness and lightheadedness This is a 33-year-old female patient with no significant past medical history presented to the emergency room complaining off dizziness and lightheadedness as well as chest discomfort. This is the third ER visit to the patient. For the last few visits she was sent home from the emergency room. The patient is and she had her baby about 2 months ago. Since then she has not been feeding well. She describes symptoms of discomfort in the chest as a pressure on the chest without any radiation and without any associated symptoms. But lately she has been experiencing symptoms of heart racing and fluttering, the symptoms seems to be intermittent, associated with dizziness and lightheadedness and flush feeling in the face. No syncope. The patient does not have any CAD, hypertension, or dyslipidemia. No major cardiovascular surgery before. She does not smoke or drink alcohol. She does have a family history of coronary artery disease with her father. When she presented to the hospital the EKG showed sinus rhythm without any significant ST or T-wave abnormalities. The chest x-ray did not show any acute abnormalities. A computed tomography scan of the brain came in to be unremarkable as well. The patient did undergo an orthostatic blood pressure check but her heart rate and blood pressure went up with standing. The cardiac enzymes were checked and came in to be unremarkable. I am concerned about cardiomyopathy. I will obtain an echocardiogram was Doppler to assess LV function. The TSH was checked as an outpatient and came in to be unremarkable. Also I will obtain a tilt table test on her Review of Systems Constitutional: Denies chills, Denies fever Eyes: denies blurred vision, denies loss of peripheral vision Ears, nose, mouth and throat: Denies headache, Denies neck fullness/pressure, Denies vertigo Cardiovascular: Reports lightheadedness, Reports rapid heart beat, Reports shortness of breath, Denies dyspnea on exertion, Denies irregular heart beat Respiratory: Denies cough with sputum, Denies wheezing Gastrointestinal: Denies abdominal pain, Denies nausea, Denies vomiting Musculoskeletal: Denies frequent falls, Denies muscle weakness Integumentary: Denies color changes, Denies rash Neurological: Denies double vision, Denies paresthesias, Denies visual changes Endocrine: Denies cold intolerance, Denies fatigue, Denies heat intolerance, Denies palpitations Hematologic/Lymphatic: Denies easy bleeding, Denies lymphadenopathy Allergic/Immunologic: Denies allergic rhinitis, Denies wheezing Past Medical History Past Medical History: Thyroid Disorder Additional Past Medical History / Comment(s): hypothyroidism, anemia, History of Any Multi-Drug Resistant Organisms: None Reported Past Surgical History: No Surgical Hx Reported Additional Past Surgical History / Comment(s): D&C, Past Anesthesia/Blood Transfusion Reactions: No Reported Reaction Smoking Status: Never smoker - Past Family History Mother Family Medical History: No Reported History Father Family Medical History: Myocardial Infarction ([place]) Medications and Allergies Home Medications Medication Instructions Recorded Confirmed Type Levothyroxine Sodium [Synthroid] 112 mcg PO DAILY 08/08/17 05/29/18 History Pnv No.95/Ferrous Fum/Folic AC 1 tab PO DAILY 05/07/18 05/29/18 History [ Multivitamin Tablet] Ferrous Sulfate [Iron (65 MG 325 mg PO DAILY 05/29/18 05/29/18 History Elemental)] Nadolol [Corgard] 10 mg PO DAILY #30 tab 05/31/18 Rx Allergies Allergy/AdvReac Type Severity Reaction Status Date / Time No Known Allergies Allergy Verified 05/29/18 20:56 Physical Exam Vitals: Vital Signs Temp Pulse Pulse Pulse Pulse Pulse Resp 05/30/18 11:41 97.8 F 87 16 05/30/18 09:11 96 05/30/18 09:05 98.4 F 98 16 05/30/18 07:24 05/30/18 04:00 18 05/30/18 03:43 98.3 F 103 H 126 H 94 18 05/29/18 23:49 16 05/29/18 23:31 98.7 F 114 H 16 05/29/18 21:00 16 05/29/18 20:57 98.4 F 104 H 16 05/29/18 20:00 114 H 18 05/29/18 19:00 112 H 20 05/29/18 18:58 111 H 18 05/29/18 15:39 98.1 F 119 H 18 BP BP BP BP BP Pulse Ox 05/30/18 11:41 110/76 99 05/30/18 09:11 05/30/18 09:05 126/88 05/30/18 07:24 97 05/30/18 04:00 05/30/18 03:43 145/97 156/90 111/73 99 05/29/18 23:49 05/29/18 23:31 117/67 100 05/29/18 21:00 05/29/18 20:57 143/76 97 05/29/18 20:00 124/84 97 05/29/18 19:00 128/85 97 05/29/18 18:58 128/85 97 05/29/18 15:39 139/95 100 Intake and Output 05/29/18 05/30/18 05/30/18 22:59 06:59 14:59 Intake Total 680 Balance 680 Intake: Oral 480 Other 200 Other: Voiding Method Toilet # Voids 1 1 Weight 90.7 kg - Constitutional General appearance: Present: average body habitus, cooperative, no acute distress - EENT Eyes: Present: anicteric sclerae, EOMI, PERRLA, normal appearance ENT: Present: hearing grossly normal, normal oropharynx Ears: bilateral: normal - Neck Neck: Present: normal ROM. Absent: lymphadenopathy, rigidity, thyromegaly Carotids: negative: bruit present Thyroid: bilateral: normal size, negative: enlarged, nodule - Respiratory Respiratory: bilateral: CTA, negative: rales, rhonchi, wheezing - Cardiovascular Rhythm: regular Heart sounds: normal: S1, S2 Abnormal Heart Sounds: Absent: systolic murmur, diastolic murmur - Gastrointestinal General gastrointestinal: Present: normal bowel sounds, soft. Absent: distended , organomegaly, tenderness - Genitourinary Genitourinary Comment(s): deferred - Integumentary Integumentary: Present: normal turgor. Absent: jaundiced, rash, ulcer - Neurologic Neurologic: Present: CNII-XII intact. Absent: focal deficits - Musculoskeletal Musculoskeletal: Present: gait normal, strength equal bilaterally - Psychiatric Psychiatric: Present: A&O x's 3, appropriate affect, intact judgment & insight Results CBC & Chem 7: 05/31/18 11:23 05/31/18 11:23 Labs: Abnormal Lab Results - Last 24 Hours (Table) 05/29/18 05/29/18 Range/Units 16:20 16:20 RDW 15.8 H (11.5-15.5) % Plt Count 148 L (150-450) k/uL BUN 22 H (7-17) mg/dL Glucose 207 H (74-99) mg/dL AST 40 H (14-36) U/L Thrombosis Risk Factor Assmnt - Choose All That Apply Any of the Below Risk Factors Present?: No Assessment and Plan Assessment: #1 intermittent episodes of dizziness and lightheadedness and heart racing #2 intermittent episodes of atypical chest discomfort #3 sinus tachycardia #4 state Plan #1 an echocardiogram was Doppler. cardiomyopathy to be ruled out #2 obtain a tilt table test as well #3 start the patient on a small dose of metoprolol beginning tomorrow after the tilt table #4 TSH was checked as an outpatient according to her and came in to be unremarkable #5 probably stress test as an outpatient as well Time with Patient: Greater than 30
[2018-05-31 15:07] LABS: T4, Free (Free Thyroxine) 2.31 ng/dL (0.78-2.19)
[2018-06-07] MEDS ORDERED: NADOLOL 20 MG TAB PO SCH (09:00)
== END 2018-05-31 15:50 | disposition home or self-care (01) ==
LOC: EC 15:33 → 1SOBS 18:04
PROVIDERS: ADMIT Internal Medicine; ATTEND Internal Medicine
DX: I49.8 Other specified cardiac arrhythmias (principal); E03.9 Hypothyroidism, unspecified; D64.9 Anemia, unspecified; F41.9 Anxiety disorder, unspecified; Z79.890 Hormone replacement therapy; Z79.899 Other long term (current) drug therapy; Z87.19 Personal history of other diseases of the digestive system; Z82.49 Family history of ischemic heart disease and other diseases of the circulatory system
CPT/HCPCS: 36415; 70450; 71046; 80048; 80053; 82550; 82553; 83540; 84439; 84443; 84484; 85025; 93005; 93306; 93660; 94640; 94760; 96361; 96374; 99285

== ENCOUNTER 2018-06-03 04:57 | Emergency (ER) | payer BC ==
[2018-06-03] MEDS ORDERED: SODIUM CHLORIDE 0.9% 500 ML 500 ML IV STA (06:50)
[2018-06-03 06:59] LABS: Basophils % (A) 0 %; Eosinophils # (A) 0.2 k/uL (0-0.7); Eosinophils % (A) 2 %; HCT 42.3 % (34.0-46.0); HGB 13.4 gm/dL (11.4-16.0); Hypochromasia Slight; Lymphocytes # (A) 2.2 k/uL (1.0-4.8); Lymphocytes % (A) 25 %; MCH 25.7 pg (25.0-35.0); MCHC 31.7 g/dL (31.0-37.0); Mean Platelet Volume 7.2; Monocytes # (A) 0.5 k/uL (0-1.0); Monocytes % (A) 6 %; Neutrophils # (A) 5.4 k/uL (1.3-7.7); Neutrophils % (A) 64 %; Platelet Count 295 k/uL (150-450); RBC 5.22 m/uL (3.80-5.40); RDW 15.5 % (11.5-15.5); WBC 8.5 k/uL (3.8-10.6)
[2018-06-03 07:07] LABS: ALT 35 U/L (9-52); AST 27 U/L (14-36); Alkaline Phosphatase 99 U/L (38-126); Anion Gap 9 mmol/L; Blood Urea Nitrogen 17 mg/dL (7-17); Calcium 9.2 mg/dL (8.4-10.2); Carbon Dioxide 26 mmol/L (22-30); Chloride 106 mmol/L (98-107); Glucose 101 mg/dL (74-99); Potassium 4.3 mmol/L (3.5-5.1); Sodium 141 mmol/L (137-145); Total Bilirubin 0.3 mg/dL (0.2-1.3); Total Protein 7.1 g/dL (6.3-8.2)
--- NOTE | 2018-06-03 07:08 | ED ---
SOB HPI - General Chief Complaint: Shortness of Breath Stated Complaint: SOB Time Seen by Provider: 06/03/18 05:12 Source: patient, family, EMS Mode of arrival: EMS Limitations: no limitations - History of Present Illness Initial Comments: This patient is a 33-year-old woman presenting to be evaluated for which she is calling dizziness as well as shortness of breath. The symptoms started approximately an hour ago while she was attempting to sleep. The patient states that she woke with a feeling like all of the blood was drained from her head. She states that she was feeling dizzy, but is difficult to ascertain exactly whether this is lightheadedness or vertigo there appear to be symptoms suggestive of both. Patient has been seen here 3 previous times in the past 11 days for similar symptoms. The patient denies chest pain, abdominal pain, diaphoresis, nausea or vomiting. She was seen in follow-up by cardiology and was diagnosed with POTS syndrome. MD Complaint: shortness of breath Onset/Timin -: hour(s) Consistency: constant Improves With: nothing Worsens With: nothing - Related Data Home Medications Medication Instructions Recorded Confirmed Levothyroxine Sodium [Synthroid] 112 mcg PO DAILY 08/08/17 06/03/18 Pnv No.95/Ferrous Fum/Folic AC 1 tab PO DAILY 05/07/18 06/03/18 [ Multivitamin Tablet] Ferrous Sulfate [Iron (65 MG 325 mg PO DAILY 05/29/18 06/03/18 Elemental)] Allergies Allergy/AdvReac Type Severity Reaction Status Date / Time No Known Allergies Allergy Verified 06/03/18 05:09 Review of Systems ROS Statement: Those systems with pertinent positive or pertinent negative responses have been documented in the HPI. ROS Other: All systems not noted in ROS Statement are negative. Constitutional: Denies: fever, chills, weakness Eyes: Denies: vision change ENT: Denies: ear pain, throat pain, congestion Respiratory: Reports: dyspnea. Denies: cough, wheezes, hemoptysis Cardiovascular: Reports: palpitations. Denies: chest pain, orthopnea, edema, syncope Gastrointestinal: Denies: abdominal pain, nausea, vomiting Genitourinary: Denies: dysuria, hematuria Musculoskeletal: Denies: back pain Skin: Denies: rash Neurological: Denies: headache, weakness, confusion Past Medical History Past Medical History: Thyroid Disorder Additional Past Medical History / Comment(s): hypothyroidism, anemia, History of Any Multi-Drug Resistant Organisms: None Reported Past Surgical History: No Surgical Hx Reported Additional Past Surgical History / Comment(s): D&C, Past Anesthesia/Blood Transfusion Reactions: No Reported Reaction Past Psychological History: No Psychological Hx Reported Smoking Status: Never smoker Past Alcohol Use History: None Reported Past Drug Use History: None Reported - Past Family History Mother Family Medical History: No Reported History Father Family Medical History: Myocardial Infarction ([place]) General Exam Limitations: no limitations General appearance: alert, anxious Head exam: Present: atraumatic, normocephalic Eye exam: Present: normal appearance. Absent: scleral icterus, conjunctival injection ENT exam: Present: normal oropharynx, mucous membranes moist Respiratory exam: Present: normal lung sounds bilaterally. Absent: respiratory distress, wheezes, rales, rhonchi, stridor Cardiovascular Exam: Present: regular rate, normal rhythm, normal heart sounds. Absent: systolic murmur, diastolic murmur, rubs, gallop GI/Abdominal exam: Present: soft. Absent: distended, tenderness, guarding, rebound, rigid, mass Extremities exam: Present: normal inspection, normal capillary refill. Absent: pedal edema, calf tenderness Back exam: Present: normal inspection. Absent: CVA tenderness (R), CVA tenderness (L) Neurological exam: Present: alert Psychiatric exam: Present: anxious Skin exam: Present: warm, dry, intact, normal color. Absent: rash Course Vital Signs 06/03/18 06/03/18 06/03/18 05:04 05:15 06:00 Temperature 97.8 F Pulse Rate 84 Pulse Rate [ Sitting] Pulse Rate [ Standing] Pulse Rate [ Supine] Respiratory 22 Rate Blood Pressure 132/91 132/91 132/91 Blood Pressure [Sitting] Blood Pressure [Standing] Blood Pressure [Supine] O2 Sat by Pulse 99 98 96 Oximetry 06/03/18 06/03/18 06:45 07:51 Temperature Pulse Rate Pulse Rate [ 93 Sitting] Pulse Rate [ 96 Standing] Pulse Rate [ 90 Supine] Respiratory Rate Blood Pressure 138/94 Blood Pressure 148/101 [Sitting] Blood Pressure 152/93 [Standing] Blood Pressure 128/77 [Supine] O2 Sat by Pulse 98 Oximetry Medical Decision Making - Lab Data Result diagrams: 06/03/18 06:48 06/03/18 06:48 Lab Results 06/03/18 06/03/18 Range/Units 06:48 06:48 WBC 8.5 (3.8-10.6) k/uL RBC 5.22 (3.80-5.40) m/uL Hgb 13.4 (11.4-16.0) gm/dL Hct 42.3 (34.0-46.0) % MCV 81.0 (80.0-100.0) fL MCH 25.7 (25.0-35.0) pg MCHC 31.7 (31.0-37.0) g/dL RDW 15.5 (11.5-15.5) % Plt Count 295 (150-450) k/uL Neutrophils % 64 % Lymphocytes % 25 % Monocytes % 6 % Eosinophils % 2 % Basophils % 0 % Neutrophils # 5.4 (1.3-7.7) k/uL Lymphocytes # 2.2 (1.0-4.8) k/uL Monocytes # 0.5 (0-1.0) k/uL Eosinophils # 0.2 (0-0.7) k/uL Basophils # 0.0 (0-0.2) k/uL Hypochromasia Slight Sodium 141 (137-145) mmol/L Potassium 4.3 (3.5-5.1) mmol/L Chloride 106 (98-107) mmol/L Carbon Dioxide 26 (22-30) mmol/L Anion Gap 9 mmol/L BUN 17 (7-17) mg/dL Creatinine 0.55 (0.52-1.04) mg/dL Est GFR (CKD-EPI)AfAm >90 (>60 ml/min/1.73 sqM) Est GFR (CKD-EPI)NonAf >90 (>60 ml/min/1.73 sqM) Glucose 101 H (74-99) mg/dL Calcium 9.2 (8.4-10.2) mg/dL Total Bilirubin 0.3 (0.2-1.3) mg/dL AST 27 (14-36) U/L ALT 35 (9-52) U/L Alkaline Phosphatase 99 (38-126) U/L Total Protein 7.1 (6.3-8.2) g/dL Albumin 4.0 (3.5-5.0) g/dL - EKG Data -: EKG Interpreted by Me EKG shows normal: sinus rhythm, axis (Normal), intervals (Normal), QRS complexes (Normal), ST-T waves (Normal) Rate: normal (Rate 80 bpm) Interpretation: normal EKG Disposition Clinical Impression: Asthenia Disposition: HOME SELF-CARE Condition: Good Additional Instructions: As we discussed, follow-up with Dr. Ratliff to see about having a sleep study arranged. Is patient prescribed a controlled substance at d/c from ED?: No Referrals: Kath Ramirez III, MD [Primary Care Provider] - 1-2 days Alexa Ratliff MD [STAFF PHYSICIAN] - 1-2 days
[2018-06-03 08:34] VITALS: BP 144/90; PULSE 95; RESP 18; TEMP 98.1
== END 2018-06-03 08:31 | disposition home or self-care (01) ==
LOC: EC 04:57
DX: R53.1 Weakness (principal); R06.02 Shortness of breath; R42 Dizziness and giddiness; E03.9 Hypothyroidism, unspecified; D64.9 Anemia, unspecified; Z79.899 Other long term (current) drug therapy; Z82.49 Family history of ischemic heart disease and other diseases of the circulatory system
CPT/HCPCS: 36415; 80053; 85025; 93005; 96360; 99285

== ENCOUNTER 2018-07-12 13:27 | Emergency (ER) | payer BC ==
[2018-07-12] MEDS ORDERED: SODIUM CHLORIDE 0.9% 1,000 ML IV STA (14:27)
[2018-07-12 15:00] LABS: Anisocytosis Slight; Basophils % (A) 0 %; Eosinophils # (A) 0.1 k/uL (0-0.7); Eosinophils % (A) 1 %; HCT 45.2 % (34.0-46.0); HGB 14.9 gm/dL (11.4-16.0); Lymphocytes # (A) 2.1 k/uL (1.0-4.8); Lymphocytes % (A) 25 %; MCH 26.8 pg (25.0-35.0); MCV 81.3 fL (80.0-100.0); Mean Platelet Volume 7.1; Monocytes # (A) 0.4 k/uL (0-1.0); Monocytes % (A) 5 %; Neutrophils # (A) 5.3 k/uL (1.3-7.7); Neutrophils % (A) 66 %; Platelet Count 279 k/uL (150-450); RBC 5.56 m/uL (3.80-5.40); RDW 17.3 % (11.5-15.5); WBC 8.1 k/uL (3.8-10.6)
[2018-07-12 15:06] LABS: Appearance,Urine Clear (Clear); Bilirubin,Urine Negative (Negative); Blood,Urine Negative (Negative); Color,Urine Colorless; Glucose,Urine (UA) Negative (Negative); Ketones,Urine Negative (Negative); Leukocyte Esterase,Urine Trace (Negative); Nitrite,Urine Negative (Negative); PH, Urine 6.5 (5.0-8.0); Protein,Urine Negative (Negative); RBC,Urine <1 /hpf (0-5); Specific Gravity,Urine 1.002 (1.001-1.035); Squamous Epithelial Cell,Urine 1 /hpf (0-4); Urobilinogen,Urine <2.0 mg/dL (<2.0)
--- NOTE | 2018-07-12 15:06 | ED ---
General Adult HPI - General Chief complaint: Abdominal Pain Stated complaint: abdominal pain Source: patient, RN notes reviewed, old records reviewed Mode of arrival: ambulatory Limitations: no limitations - History of Present Illness Initial comments: 33-year-old female patient presents in ER with sensation of fullness in her abdomen and pelvis for approximately 5 days. Patient also claims of mild dysuria and white discharge. Patient sees care for evaluation of her symptoms. 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 Patient denies abdominal pain, nausea vomiting diarrhea, fever or chills, shortness of breath, chest pain, pleuritic chest pain. Systemic: Pt denies fatigue, myalgia, fever/chills, rash. Pt denies weakness, night sweats, weight loss. Neuro: Pt denies headache, visual disturbances, syncope or pre-syncope. Denies new onset paresthesias. HEENT: Pt denies ocular discharge or irritation, otalgia, rhinorrhea, pharyngitis or notable lymphadenopathy. Cardiopulmonary: Pt denies chest pain, pleuritic chest pain, SOB, heart palpitations, dyspnea on exertion. Abdominal/GI: Pt denies abdominal pain, n/v/d. : Pt denies burning w/ urination, frequency/urgency. Denies new onset urinary or bowel incontinence. MSK: Pt denies myalgia, loss of strength or function in extremities. - Related Data Home Medications Medication Instructions Recorded Confirmed Pnv No.95/Ferrous Fum/Folic AC 1 tab PO HS 05/07/18 07/12/18 [ Multivitamin Tablet] Ferrous Sulfate [Iron (65 MG 325 mg PO HS 05/29/18 07/12/18 Elemental)] Levothyroxine Sodium [Synthroid] 112 mcg PO DAILY 07/12/18 07/12/18 Nadolol [Corgard] 20 mg PO DAILY@1200 07/12/18 07/12/18 Allergies Allergy/AdvReac Type Severity Reaction Status Date / Time No Known Allergies Allergy Verified 07/12/18 13:48 Review of Systems ROS Statement: Those systems with pertinent positive or pertinent negative responses have been documented in the HPI. ROS Other: All systems not noted in ROS Statement are negative. Past Medical History Past Medical History: Thyroid Disorder Additional Past Medical History / Comment(s): hypothyroidism, anemia, History of Any Multi-Drug Resistant Organisms: None Reported Past Surgical History: No Surgical Hx Reported Additional Past Surgical History / Comment(s): D&C, Past Anesthesia/Blood Transfusion Reactions: No Reported Reaction Past Psychological History: No Psychological Hx Reported Smoking Status: Never smoker Past Alcohol Use History: None Reported Past Drug Use History: None Reported - Past Family History Mother Family Medical History: No Reported History Father Family Medical History: Myocardial Infarction ([place]) General Exam - General Exam Comments Initial Comments: Constitutional: NAD, AOX3, Pt has pleasant affect. HEENT: NC/AT, trachea midline, neck supple, no lymphadenopathy. Posterior pharynx non erythematous, without exudates. External ears appear normal, without discharge. Mucous membranes moist. Eyes PERRLA, EOM intact. There is no scleral icterus. No pallor noted. Cardiopulmonary: RRR, no murmurs, rubs or gallops, no JVD noted. Lungs CTAB in anterior and posterior walker. No peripheral edema. Abdominal exam: Abdomen soft and non-distended. Abdomen non-tender to palpation in all 4 quadrants. Bowel sounds active in LLQ. No hepatosplenomegaly. No ecchymosis, cullens and edwards trevizo sign negative. Neuro: CN II-XII grossly intact. No Focal deficit, no facial droop. MSK: Full active ROM in upper and lower extremities. Pt ambulatory. Full sensation in active and lower extremities. Radial pulse +2 bilaterally, posterior tibialis pulse +2 bilaterally. Homans sign negative bilaterally. : Pelvic exam performed, chaperogned by Denise BUSH. White discharge noted, consistent with vaginal candiasis. Cervix pink, no ulcers, lesions. Bimanual exam did not display any cervical motion tenderness. Limitations: no limitations Course Vital Signs 07/12/18 07/12/18 13:30 13:47 Temperature 97.4 F L 98.2 F Pulse Rate 93 104 H Respiratory 18 20 Rate Blood Pressure 132/92 135/99 O2 Sat by Pulse 98 98 Oximetry Medical Decision Making - Medical Decision Making 33-year-old female patient presented to ED with a sensation of abdomen/pelvis fullness and mild dysuria. Physical exam of systems neuro, cardiopulmonary, abdominal, HEENT, MSK display any acute pathology. examination displayed vaginal candidiasis. Laboratory investigations did not display any acute pathology, EDC/CMP were noncompressive. UA did not display UTI, hCG was negative. Patient requested a transvaginal ultrasound, which was performed, did not display any acute pathology. KUB displayed nonobstructive gas pattern, feces. Repeat abdominal exams displayed there was nontender palpation once again, no ecchymoses. Patient requested that she not have a CT abdomen and pelvis. Patient to be treated for vaginal candidiasis. Patient to continue to follow up with PCP in 1-2 days for sensation of fullness in abdomen, may be stool secondary to constipation as visualized on KUB. Pt states she is still having regular bowel movements. Patient is not concerned about having an STI, patient will be called if gonorrhea or chlamydia PCR test is positive. Patient to return to ED if any new signs or symptoms develop including abdominal pain, nausea vomiting diarrhea, chest pain, shortness of breath, any other new symptoms. Case discussed with Dr. Betancur. - Lab Data Result diagrams: 07/12/18 14:37 07/12/18 14:37 Lab Results 07/12/18 07/12/18 07/12/18 Range/Units 14:37 14:37 14:37 WBC 8.1 (3.8-10.6) k/uL RBC 5.56 H (3.80-5.40) m/uL Hgb 14.9 (11.4-16.0) gm/dL Hct 45.2 (34.0-46.0) % MCV 81.3 (80.0-100.0) fL MCH 26.8 (25.0-35.0) pg MCHC 33.0 (31.0-37.0) g/dL RDW 17.3 H (11.5-15.5) % Plt Count 279 (150-450) k/uL Neutrophils % 66 % Lymphocytes % 25 % Monocytes % 5 % Eosinophils % 1 % Basophils % 0 % Neutrophils # 5.3 (1.3-7.7) k/uL Lymphocytes # 2.1 (1.0-4.8) k/uL Monocytes # 0.4 (0-1.0) k/uL Eosinophils # 0.1 (0-0.7) k/uL Basophils # 0.0 (0-0.2) k/uL Anisocytosis Slight Sodium 139 (137-145) mmol/L Potassium 4.4 (3.5-5.1) mmol/L Chloride 104 (98-107) mmol/L Carbon Dioxide 25 (22-30) mmol/L Anion Gap 10 mmol/L BUN 10 (7-17) mg/dL Creatinine 0.62 (0.52-1.04) mg/dL Est GFR (CKD-EPI)AfAm >90 (>60 ml/min/1.73 sqM) Est GFR (CKD-EPI)NonAf >90 (>60 ml/min/1.73 sqM) Glucose 110 H (74-99) mg/dL Plasma Lactic Acid [place]asc[place] (0.7-2.0) mmol/L Calcium 9.4 (8.4-10.2) mg/dL Total Bilirubin 0.4 (0.2-1.3) mg/dL AST 33 (14-36) U/L ALT 32 (9-52) U/L Alkaline Phosphatase 86 (38-126) U/L Total Protein 7.4 (6.3-8.2) g/dL Albumin 4.3 (3.5-5.0) g/dL Lipase 75 (23-300) U/L Urine Color Urine Appearance (Clear) Urine pH (5.0-8.0) Ur Specific [place] (1.001-1.035) Urine Protein (Negative) Urine Glucose (UA) (Negative) Urine Ketones (Negative) Urine Blood (Negative) Urine Nitrite (Negative) Urine Bilirubin (Negative) Urine Urobilinogen (<2.0) mg/dL Ur Leukocyte Esterase (Negative) Urine RBC (0-5) /hpf Ur Squamous Epith Cells (0-4) /hpf Urine HCG, Qual Not Detected (Not Detectd) 07/12/18 07/12/18 Range/Units 14:37 14:37 WBC (3.8-10.6) k/uL RBC (3.80-5.40) m/uL Hgb (11.4-16.0) gm/dL Hct (34.0-46.0) % MCV (80.0-100.0) fL MCH (25.0-35.0) pg MCHC (31.0-37.0) g/dL RDW (11.5-15.5) % Plt Count (150-450) k/uL Neutrophils % % Lymphocytes % % Monocytes % % Eosinophils % % Basophils % % Neutrophils # (1.3-7.7) k/uL Lymphocytes # (1.0-4.8) k/uL Monocytes # (0-1.0) k/uL Eosinophils # (0-0.7) k/uL Basophils # (0-0.2) k/uL Anisocytosis Sodium (137-145) mmol/L Potassium (3.5-5.1) mmol/L Chloride (98-107) mmol/L Carbon Dioxide (22-30) mmol/L Anion Gap mmol/L BUN (7-17) mg/dL Creatinine (0.52-1.04) mg/dL Est GFR (CKD-EPI)AfAm (>60 ml/min/1.73 sqM) Est GFR (CKD-EPI)NonAf (>60 ml/min/1.73 sqM) Glucose (74-99) mg/dL Plasma Lactic Acid [place] 1.9 (0.7-2.0) mmol/L Calcium (8.4-10.2) mg/dL Total Bilirubin (0.2-1.3) mg/dL AST (14-36) U/L ALT (9-52) U/L Alkaline Phosphatase (38-126) U/L Total Protein (6.3-8.2) g/dL Albumin (3.5-5.0) g/dL Lipase (23-300) U/L Urine Color Colorless Urine Appearance Clear (Clear) Urine pH 6.5 (5.0-8.0) Ur Specific [place] 1.002 (1.001-1.035) Urine Protein Negative (Negative) Urine Glucose (UA) Negative (Negative) Urine Ketones Negative (Negative) Urine Blood Negative (Negative) Urine Nitrite Negative (Negative) Urine Bilirubin Negative (Negative) Urine Urobilinogen <2.0 (<2.0) mg/dL Ur Leukocyte Esterase Trace H (Negative) Urine RBC <1 (0-5) /hpf Ur Squamous Epith Cells 1 (0-4) /hpf Urine HCG, Qual (Not Detectd) Disposition Clinical Impression: Vaginal candidiasis Disposition: HOME SELF-CARE Condition: Good Instructions: Yeast Infection (ED) Additional Instructions: Patient to adhere to previously discussed treatment plan and will take medication(s) as directed. Patient to follow up with PCP in 1-2 days. Patient to return to ED if symptoms do not improve. Is patient prescribed a controlled substance at d/c from ED?: No Referrals: Kath Ramirez III, MD [Primary Care Provider] - 1-2 days Time of Disposition: 16:59
[2018-07-12 15:08] LABS: ALT 32 U/L (9-52); AST 33 U/L (14-36); Albumin 4.3 g/dL (3.5-5.0); Alkaline Phosphatase 86 U/L (38-126); Anion Gap 10 mmol/L; Blood Urea Nitrogen 10 mg/dL (7-17); Calcium 9.4 mg/dL (8.4-10.2); Carbon Dioxide 25 mmol/L (22-30); Chloride 104 mmol/L (98-107); Glucose 110 mg/dL (74-99); Lipase 75 U/L (23-300); Potassium 4.4 mmol/L (3.5-5.1); Sodium 139 mmol/L (137-145); Total Bilirubin 0.4 mg/dL (0.2-1.3); Total Protein 7.4 g/dL (6.3-8.2)
[2018-07-12 15:12] VITALS: RESP 20
--- NOTE | 2018-07-12 15:42 | US ---
EXAMINATION TYPE: US transvaginal DATE OF EXAM: 07/12/2018 COMPARISON: US 2018 CLINICAL HISTORY: Pain. Pelvic discomfort x 5 days, 2, para 2, 3 months , D&C 1 mon th ago TECHNIQUE: Transvaginal ER exam. Date of LMP: 06/28/2018 EXAM MEASUREMENTS: Uterus: 11.3 x 5.1 x 6.0 cm Endometrial Stripe: 1.3 cm Right Ovary: 3.2 x 1.7 x 2.7 cm Left Ovary: 3.9 x 3.2 x 3.2 cm 1. Uterus: anteverted, enlarged 2. Endometrium: 0.4cm echogenic focus in fundal portion 3. Right Ovary: suboptimal visualization of vascularity within right ovary due to its position poste rior to enlarged uterus, cannot rule out torsion. 4. Left Ovary: 3.4 x 2.2 x 2.3cm cyst, no torsion Spectral, color and waveform doppler imaging shows good arterial and venous flow within the left ov samreen; suboptimal visualization of vascularity within right ovary due to its position posterior to enla rged uterus 5. Bilateral Adnexa: wnl 6. Posterior cul-de-sac: wnl IMPRESSION: 1. Endometrial thickness is within normal limits for a premenopausal female with echogenic focus poss ibly related to an intramural endometrial calcification. No concerning endometrial thickening to rais e suspicion for endometrium is status post D&C. 2. 3.4 cm simple appearing left ovarian cyst developed in the interim in comparison to exam of 2017.
--- NOTE | 2018-07-12 16:05 | XR ---
EXAMINATION TYPE: XR KUB DATE OF EXAM: 07/12/2018 3:54 PM CLINICAL HISTORY: Epigastric abdominal pain TECHNIQUE: Single upright KUB image of the abdomen is obtained. COMPARISON: None. FINDINGS: Scattered gas is seen in non-distended small bowel loops. Gas and fecal material is seen in non-distended colon. There is no visceromegaly, pneumoperitoneum, or abnormal calcification apprecia charis. The lung bases are clear and the osseous structures are intact. IMPRESSION: Nonobstructive bowel gas pattern.
[2018-07-12] MEDS ORDERED: FLUCONAZOLE 150 MG TAB PO STA (16:58)
[2018-07-12 17:29] VITALS: BP 138/108; PULSE 89; TEMP 97.8
[2018-07-13 15:55] LABS: C. trachomatis,PCR Negative (Neg,Equiv); Chlamydia trachomatis Source Vagina; N. gonorrhoeae,PCR Negative (Neg,Equiv); Neisseria Source Vagina
== END 2018-07-12 17:29 | disposition home or self-care (01) ==
LOC: EC 13:27
DX: B37.3 Candidiasis of vulva and vagina (principal); R30.0 Dysuria; E03.9 Hypothyroidism, unspecified; D64.9 Anemia, unspecified; Z79.899 Other long term (current) drug therapy
CPT/HCPCS: 36415; 74018; 76830; 80053; 81001; 81025; 83540; 83605; 83690; 85025; 87491; 87591; 93976; 99285

== ENCOUNTER → 2018-07-20 | Outpatient (CLI) | payer BC ==
--- NOTE | 2018-07-21 07:08 | US ---
EXAMINATION TYPE: US carotid duplex BILAT DATE OF EXAM: 07/20/2018 COMPARISON: NONE CLINICAL HISTORY: I49.8 cardiac arrhythmias, R42 Dizziness and giddi. EXAM MEASUREMENTS: RIGHT: Peak Systolic Velocity (PSV) cm/sec ----- Right CCA: 87.5 ----- Right ICA: 90.8 ----- Right ECA: 88.6 ICA/CCA ratio: 1.0 RIGHT: End Diastole cm/sec ----- Right CCA: 32.5 ----- Right ICA: 44.6 ----- Right ECA: 13.8 LEFT: Peak Systolic Velocity (PSV) cm/sec ----- Left CCA: 106.6 ----- Left ICA: 93.4 ----- Left ECA: 76.2 ICA/CCA ratio: 0.9 LEFT: End Diastole cm/sec ----- Left CCA: 39.1 ----- Left ICA: 52.4 ----- Left ECA: 14.0 VERTEBRALS (direction of flow): Right Vertebral: Antegrade Left Vertebral: Antegrade Rhythm: Normal No significant stenosis seen, no elevated velocities. No plaque seen. IMPRESSION: 1. No significant flow-limiting stenosis is evident bilateral carotid system Criteria for Assigning % of Stenosis / Diameter reduction (Estimation based on the indirect measurements of the internal carotid artery velocities (ICA PSV). 1. Normal (no stenosis)=ICA PSV < 125 cm/s: ratio < 2.0: ICA EDV<40 cm/s. 2. Less than 50% stenosis=ICA PSV < 125 cm/s: ratio < 2.0: ICA EDV<40 cm/s. 3. 50 to 69% stenosis=ICA PSV of 125 to 230 cm/s: ration 2.0 ? 4.0: ICA EDV 40-100 cm/s. 4. Greater than 70% stenosis to near occlusion= ICA PSV > 230 cm/s: ratio > 4.0: ICA EDV > 100 cm/s. 5. Near occlusion= ICA PSV velocities may be low or undetectable: variable ratio and ICA EDV. 6. Total occlusion=unable to detect flow.
== END | disposition home or self-care (01) ==
LOC: RADUSWWP 17:00
PROVIDERS: ATTEND Family Medicine
DX: R42 Dizziness and giddiness (principal)
CPT/HCPCS: 93880

== ENCOUNTER → 2018-07-30 | Outpatient (CLI) | payer BC ==
--- NOTE | 2018-07-30 12:48 | FL ---
EXAMINATION TYPE: FL barium swallow DATE OF EXAM: 07/30/2018 CLINICAL HISTORY: Excessive gas, diarrhea, abdominal pain and chest pressure. TECHNIQUE: A double contrast esophagram is performed utilizing air and barium. A total of 2 minutes and 40 seconds of fluoroscopic time was utilized during procedure. 46 fluoroscopic images were saved . COMPARISON: None FINDINGS: There is intermittent but repeated beaking of the gastroesophageal junction with delayed pa ssage through the lower esophageal sphincter at times resulting in few tertiary contractions and mild intraesophageal reflux. This finding does not persist throughout the entirety of the examination. No significant proximal esophageal dilation is seen. No evidence of hiatal hernia or stricture noted. No significant gastroesophageal reflux was seen duri ng real time performance of this study. 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 This results in mild in traesophageal reflux and intermittent esophageal spasm.
== END | disposition home or self-care (01) ==
LOC: RADFLWHC 11:04
PROVIDERS: ATTEND Otolaryngology
DX: K21.9 Gastro-esophageal reflux disease without esophagitis (principal); K22.4 Dyskinesia of esophagus
CPT/HCPCS: 74220

== ENCOUNTER 2018-08-03 04:04 | Emergency (ER) | payer BC ==
--- NOTE | 2018-08-03 04:07 | ED ---
General Adult HPI - General Stated complaint: Anxiety Time Seen by Provider: 08/03/18 04:07 - History of Present Illness Initial comments: Xin is a 33-year-old female with past medical history is documented below who is currently 4 months . Patient presents to the emergency department today with multiple nonspecific complaints. Patient reports that she feels lightheaded all of the time, she reports she feels lightheaded when she is laying down no matter what position she is laying or sitting up and when she stands up, she has been evaluated multiple times in recent past for this and has been diagnosed with pots disease. Patient has had a thorough workup including a cardiac workup and carotid Dopplers. Patient reports that despite being diagnosed and being compliant with a high salt diet she continues to have symptoms at all times. In addition patient reports that when she stands she feels pressure in her abdomen. Patient reports a feeling of pressure in her abdomen makes her feel more lightheaded. Patient describes the pressure as being in the right upper quadrant, it occurred earlier in the night but was transient and has resolved prior to arrival. Patient stating that she feels she needs an MRI of her brain to figure out what is going on. Patient has been seen and evaluated this ER and other ERs. Times in the past 3 months for similar complaints. She reports that she just feels something is wrong that she is going to and nobody is figuring it out. She states she wants her body MRI to figure out what's going on inside because she is arty had CT scans and labs with no findings. She repeatedly states that she knows her symptoms are not related to anxiety and that she does not want to be told that this could be anxiety. - Related Data Home Medications Medication Instructions Recorded Confirmed Pnv No.95/Ferrous Fum/Folic AC 1 tab PO HS 05/07/18 07/12/18 [ Multivitamin Tablet] Ferrous Sulfate [Iron (65 MG 325 mg PO HS 05/29/18 07/12/18 Elemental)] Levothyroxine Sodium [Synthroid] 112 mcg PO DAILY 07/12/18 07/12/18 Nadolol [Corgard] 20 mg PO DAILY@1200 07/12/18 07/12/18 Allergies Allergy/AdvReac Type Severity Reaction Status Date / Time No Known Allergies Allergy Verified 08/03/18 04:20 Review of Systems ROS Statement: Those systems with pertinent positive or pertinent negative responses have been documented in the HPI. ROS Other: All systems not noted in ROS Statement are negative. Past Medical History Past Medical History: Thyroid Disorder Additional Past Medical History / Comment(s): hypothyroidism, anemia, History of Any Multi-Drug Resistant Organisms: None Reported Past Surgical History: No Surgical Hx Reported Additional Past Surgical History / Comment(s): D&C, Past Anesthesia/Blood Transfusion Reactions: No Reported Reaction Past Psychological History: No Psychological Hx Reported Smoking Status: Never smoker Past Alcohol Use History: None Reported Past Drug Use History: None Reported - Past Family History Mother Family Medical History: No Reported History Father Family Medical History: Myocardial Infarction ([place]) General Exam - General Exam Comments Initial Comments: Physical Exam GENERAL: Patient is well-developed and well-nourished. Patient is nontoxic and well- hydrated and is in no distress. HENT: Normocephalic, Atraumatic. EYES: PERRL, EOMI PULMONARY: Unlabored respirations. No audible rales rhonchi or wheezing was noted. CARDIOVASCULAR: There is a regular rate and rhythm without any murmurs gallops or rubs. ABDOMEN: Soft and nontender with normal bowel sounds. SKIN: Skin is clear with no lesions or rashes and otherwise unremarkable. : Deferred NEUROLOGIC: Patient is alert and oriented x3. Moving all extremities spontaneously MUSCULOSKELETAL: Normal extremities with adequate strength and full range of motion. No lower extremity swelling or edema. No calf tenderness. PSYCHIATRIC: Normal psychiatric evaluation. 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[employer] ] Respiratory 18 24 19 Rate Blood Pressure 130/86 142/99 O2 Sat by Pulse 96 99 Oximetry 08/03/18 08/03/18 08/03/18 05:40 05:57 06:39 Temperature Pulse Rate 78 88 90 Pulse Rate [ Car Rep[employer] [place] ] Respiratory 19 21 18 Rate Blood Pressure 135/86 132/91 134/99 O2 Sat by Pulse 99 98 98 Oximetry 08/03/18 07:50 Temperature 98.0 F Pulse Rate 82 Pulse Rate [ Car Rep[employer]r [employer] ] Respiratory 18 Rate Blood Pressure 134/88 O2 Sat by Pulse 97 Oximetry EKG Findings - EKG Comments: EKG Findings:: EKG obtained at 4:41 AM, rate is 99 rhythm is sinus normal axis normal intervals NH 156 QRS 76, QTC 469 there are no acute ST elevations or depressions no evidence of acute ischemia or infarction or arrhythmia. Medical Decision Making - Medical Decision Making The patient was seen and evaluated, history was obtained from the patient and review of medical records On initial evaluation the patient is very anxious appearing, tearful she repeatedly states that she no she is going to today. Vital signs were unremarkable, labs and imaging were ordered Patient states that when she was at home she could feel that her blood pressure was elevated and now she has a mild headache. Patient's blood pressure has normalized since arrival, I offered the patient a computed tomography scan to evaluate for any bleeding however patient states she has had a computed tomography scan in the past and wants an MRI. I advised her that at this time an MRI is not indicated. Patient became very agitated stating that she will pay for the MRI and she wants it done now. I again discussed with the patient that at this time an MRI is not indicated, I recommended she follow up with her primary care physician or neurologist for her persistent symptoms. Physical exam with no acute findings. Labs and imaging were obtained, no significant abnormalities noted on labs. At this time and do not feel that further imaging is ordered. Patient again becoming agitated requesting further testing as she has had symptoms for 4 months without resolution. At this time patient would like to pursue computed tomography scan of the head for her headache given the hypertension she reports she did feel well at home. Computed tomography scan was ordered and resulted with no acute findings. All questions pertaining to care were answered to the best of my ability patient was upset, patient states that she is from [place] and there patients are always evaluated by a team of doctors and all tests the patient wants are completed immediately. I apologized to the patient and again advised her to follow up with her PCP and multiple specialists. I encouraged the patient to return to the ER for any recurrent or worsening symptoms/ - Lab Data Result diagrams: 08/03/18 04:45 08/03/18 04:45 Lab Results 08/03/18 08/03/18 08/03/18 Range/Units 04:35 04:45 04:45 WBC 8.5 (3.8-10.6) k/uL RBC 5.29 (3.80-5.40) m/uL Hgb 14.3 (11.4-16.0) gm/dL Hct 44.6 (34.0-46.0) % MCV 84.2 (80.0-100.0) fL MCH 27.0 (25.0-35.0) pg MCHC 32.1 (31.0-37.0) g/dL RDW 17.9 H (11.5-15.5) % Plt Count 320 (150-450) k/uL Neutrophils % 56 % Lymphocytes % 31 % Monocytes % 7 % Eosinophils % 2 % Basophils % 1 % Neutrophils # 4.8 (1.3-7.7) k/uL Lymphocytes # 2.6 (1.0-4.8) k/uL Monocytes # 0.6 (0-1.0) k/uL Eosinophils # 0.2 (0-0.7) k/uL Basophils # 0.1 (0-0.2) k/uL Anisocytosis Slight Sodium 138 (137-145) mmol/L Potassium 4.7 (3.5-5.1) mmol/L Chloride 103 (98-107) mmol/L Carbon Dioxide 24 (22-30) mmol/L Anion Gap 11 mmol/L BUN 20 H (7-17) mg/dL Creatinine 0.66 (0.52-1.04) mg/dL Est GFR (CKD-EPI)AfAm >90 (>60 ml/min/1.73 sqM) Est GFR (CKD-EPI)NonAf >90 (>60 ml/min/1.73 sqM) Glucose 99 (74-99) mg/dL POC Glucose (mg/dL) 100 H (75-99) mg/dL POC Glu Brinell Tester ID Aron Vásquez Calcium 9.6 (8.4-10.2) mg/dL Total Bilirubin 0.2 (0.2-1.3) mg/dL AST 30 (14-36) U/L ALT 39 (9-52) U/L Alkaline Phosphatase 77 (38-126) U/L Total Protein 7.4 (6.3-8.2) g/dL Albumin 4.3 (3.5-5.0) g/dL Amylase (30-110) U/L Lipase (23-300) U/L TSH (0.465-4.680) mIU/L Free T4 (0.78-2.19) ng/dL Urine Color Urine Appearance (Clear) Urine pH (5.0-8.0) Ur Specific [place] (1.001-1.035) Urine Protein (Negative) Urine Glucose (UA) (Negative) Urine Ketones (Negative) Urine Blood (Negative) Urine Nitrite (Negative) Urine Bilirubin (Negative) Urine Urobilinogen (<2.0) mg/dL Ur Leukocyte Esterase (Negative) Urine HCG, Qual (Not Detectd) Urine Opiates Screen (NotDetected) Ur Oxycodone Screen (NotDetected) Urine Methadone Screen (NotDetected) Ur Propoxyphene Screen (NotDetected) Ur Barbiturates Screen (NotDetected) U Tricyclic Antidepress (NotDetected) Ur Phencyclidine Scrn (NotDetected) Ur Amphetamines Screen (NotDetected) U Methamphetamines Scrn (NotDetected) U Benzodiazepines Scrn (NotDetected) Urine Cocaine Screen (NotDetected) U Marijuana (THC) Screen (NotDetected) 08/03/18 08/03/18 08/03/18 Range/Units 04:45 04:45 05:25 WBC (3.8-10.6) k/uL RBC (3.80-5.40) m/uL Hgb (11.4-16.0) gm/dL Hct (34.0-46.0) % MCV (80.0-100.0) fL MCH (25.0-35.0) pg MCHC (31.0-37.0) g/dL RDW (11.5-15.5) % Plt Count (150-450) k/uL Neutrophils % % Lymphocytes % % Monocytes % % Eosinophils % % Basophils % % Neutrophils # (1.3-7.7) k/uL Lymphocytes # (1.0-4.8) k/uL Monocytes # (0-1.0) k/uL Eosinophils # (0-0.7) k/uL Basophils # (0-0.2) k/uL Anisocytosis Sodium (137-145) mmol/L Potassium (3.5-5.1) mmol/L Chloride (98-107) mmol/L Carbon Dioxide (22-30) mmol/L Anion Gap mmol/L BUN (7-17) mg/dL Creatinine (0.52-1.04) mg/dL Est GFR (CKD-EPI)AfAm (>60 ml/min/1.73 sqM) Est GFR (CKD-EPI)NonAf (>60 ml/min/1.73 sqM) Glucose (74-99) mg/dL POC Glucose (mg/dL) (75-99) mg/dL POC Glu Brinell Tester ID Calcium (8.4-10.2) mg/dL Total Bilirubin (0.2-1.3) mg/dL AST (14-36) U/L ALT (9-52) U/L Alkaline Phosphatase (38-126) U/L Total Protein (6.3-8.2) g/dL Albumin (3.5-5.0) g/dL Amylase 84 (30-110) U/L Lipase 85 (23-300) U/L TSH 53.400 H (0.465-4.680) mIU/L Free T4 0.74 L (0.78-2.19) ng/dL Urine Color Urine Appearance (Clear) Urine pH (5.0-8.0) Ur Specific [place] (1.001-1.035) Urine Protein (Negative) Urine Glucose (UA) (Negative) Urine Ketones (Negative) Urine Blood (Negative) Urine Nitrite (Negative) Urine Bilirubin (Negative) Urine Urobilinogen (<2.0) mg/dL Ur Leukocyte Esterase (Negative) Urine HCG, Qual Not Detected (Not Detectd) Urine Opiates Screen (NotDetected) Ur Oxycodone Screen (NotDetected) Urine Methadone Screen (NotDetected) Ur Propoxyphene Screen (NotDetected) Ur Barbiturates Screen (NotDetected) U Tricyclic Antidepress (NotDetected) Ur Phencyclidine Scrn (NotDetected) Ur Amphetamines Screen (NotDetected) U Methamphetamines Scrn (NotDetected) U Benzodiazepines Scrn (NotDetected) Urine Cocaine Screen (NotDetected) U Marijuana (THC) Screen (NotDetected) 08/03/18 08/03/18 Range/Units 05:25 05:25 WBC (3.8-10.6) k/uL RBC (3.80-5.40) m/uL Hgb (11.4-16.0) gm/dL Hct (34.0-46.0) % MCV (80.0-100.0) fL MCH (25.0-35.0) pg MCHC (31.0-37.0) g/dL RDW (11.5-15.5) % Plt Count (150-450) k/uL Neutrophils % % Lymphocytes % % Monocytes % % Eosinophils % % Basophils % % Neutrophils # (1.3-7.7) k/uL Lymphocytes # (1.0-4.8) k/uL Monocytes # (0-1.0) k/uL Eosinophils # (0-0.7) k/uL Basophils # (0-0.2) k/uL Anisocytosis Sodium (137-145) mmol/L Potassium (3.5-5.1) mmol/L Chloride (98-107) mmol/L Carbon Dioxide (22-30) mmol/L Anion Gap mmol/L BUN (7-17) mg/dL Creatinine (0.52-1.04) mg/dL Est GFR (CKD-EPI)AfAm (>60 ml/min/1.73 sqM) Est GFR (CKD-EPI)NonAf (>60 ml/min/1.73 sqM) Glucose (74-99) mg/dL POC Glucose (mg/dL) (75-99) mg/dL POC Glu Brinell Tester ID Calcium (8.4-10.2) mg/dL Total Bilirubin (0.2-1.3) mg/dL AST (14-36) U/L ALT (9-52) U/L Alkaline Phosphatase (38-126) U/L Total Protein (6.3-8.2) g/dL Albumin (3.5-5.0) g/dL Amylase (30-110) U/L Lipase (23-300) U/L TSH (0.465-4.680) mIU/L Free T4 (0.78-2.19) ng/dL Urine Color Colorless Urine Appearance Clear (Clear) Urine pH 7.0 (5.0-8.0) Ur Specific [place] 1.005 (1.001-1.035) Urine Protein Negative (Negative) Urine Glucose (UA) Negative (Negative) Urine Ketones Negative (Negative) Urine Blood Negative (Negative) Urine Nitrite Negative (Negative) Urine Bilirubin Negative (Negative) Urine Urobilinogen <2.0 (<2.0) mg/dL Ur Leukocyte Esterase Negative (Negative) Urine HCG, Qual (Not Detectd) Urine Opiates Screen Not Detected (NotDetected) Ur Oxycodone Screen Not Detected (NotDetected) Urine Methadone Screen Not Detected (NotDetected) Ur Propoxyphene Screen Not Detected (NotDetected) Ur Barbiturates Screen Not Detected (NotDetected) U Tricyclic Antidepress Not Detected (NotDetected) Ur Phencyclidine Scrn Not Detected (NotDetected) Ur Amphetamines Screen Not Detected (NotDetected) U Methamphetamines Scrn Not Detected (NotDetected) U Benzodiazepines Scrn Not Detected (NotDetected) Urine Cocaine Screen Not Detected (NotDetected) U Marijuana (THC) Screen Not Detected (NotDetected) Disposition Clinical Impression: Abdominal pain Disposition: HOME SELF-CARE Instructions: Abdominal Pain (ED) Is patient prescribed a controlled substance at d/c from ED?: No Referrals: None,Stated [REFERRING] - 1-2 days Yuliana Recinos MD [STAFF PHYSICIAN] - 1-2 days Pradip Howe DO [Doctor of Osteopathic Medicine] - 1-2 days
[2018-08-03 04:21] VITALS: TEMP 98
[2018-08-03 04:37] LABS: Glucose,Whole Blood 100 mg/dL (75-99)
[2018-08-03 04:58] LABS: Anisocytosis Slight; Basophils # (A) 0.1 k/uL (0-0.2); Basophils % (A) 1 %; Eosinophils # (A) 0.2 k/uL (0-0.7); Eosinophils % (A) 2 %; HCT 44.6 % (34.0-46.0); HGB 14.3 gm/dL (11.4-16.0); Lymphocytes # (A) 2.6 k/uL (1.0-4.8); Lymphocytes % (A) 31 %; MCHC 32.1 g/dL (31.0-37.0); MCV 84.2 fL (80.0-100.0); Mean Platelet Volume 7.2; Monocytes # (A) 0.6 k/uL (0-1.0); Monocytes % (A) 7 %; Neutrophils # (A) 4.8 k/uL (1.3-7.7); Neutrophils % (A) 56 %; Platelet Count 320 k/uL (150-450); RBC 5.29 m/uL (3.80-5.40); RDW 17.9 % (11.5-15.5); WBC 8.5 k/uL (3.8-10.6)
[2018-08-03] MEDS ORDERED: SODIUM CHLORIDE 0.9% 1,000 ML IV ONE (05:05)
[2018-08-03 05:09] LABS: ALT 39 U/L (9-52); AST 30 U/L (14-36); Albumin 4.3 g/dL (3.5-5.0); Alkaline Phosphatase 77 U/L (38-126); Anion Gap 11 mmol/L; Blood Urea Nitrogen 20 mg/dL (7-17); Calcium 9.6 mg/dL (8.4-10.2); Carbon Dioxide 24 mmol/L (22-30); Chloride 103 mmol/L (98-107); Glucose 99 mg/dL (74-99); Potassium 4.7 mmol/L (3.5-5.1); Sodium 138 mmol/L (137-145); Total Bilirubin 0.2 mg/dL (0.2-1.3); Total Protein 7.4 g/dL (6.3-8.2)
[2018-08-03 05:26] LABS: Amylase 84 U/L (30-110); Lipase 85 U/L (23-300)
[2018-08-03 05:37] LABS: Appearance,Urine Clear (Clear); Bilirubin,Urine Negative (Negative); Blood,Urine Negative (Negative); Color,Urine Colorless; Glucose,Urine (UA) Negative (Negative); Ketones,Urine Negative (Negative); Leukocyte Esterase,Urine Negative (Negative); Nitrite,Urine Negative (Negative); Protein,Urine Negative (Negative); Specific Gravity,Urine 1.005 (1.001-1.035); Urobilinogen,Urine <2.0 mg/dL (<2.0)
[2018-08-03 06:07] LABS: Amphetamine Screen,Urine Not Detected (NotDetected); Barbiturate Screen,Urine Not Detected (NotDetected); Benzodiazepines Screen,Urine Not Detected (NotDetected); Cocaine Screen,Urine Not Detected (NotDetected); Methadone Screen, Urine Not Detected (NotDetected); Opiate Screen,Urine Not Detected (NotDetected); Oxycodone Screen, Urine Not Detected (NotDetected); Phencyclidine Screen,Urine Not Detected (NotDetected); Tricyclic Antidepressant,Urine Not Detected (NotDetected); Urn Cannabinoid Scrn Not Detected (NotDetected)
[2018-08-03 06:41] VITALS: RESP 18
--- NOTE | 2018-08-03 07:18 | CT ---
EXAMINATION TYPE: CT brain wo con DATE OF EXAM: 08/03/2018 COMPARISON: Prior CT brain 05/29/2018 HISTORY: Dizziness/Headache CT DLP: 1171.4 mGycm. Automated Exposure Control for Dose Reduction was Utilized. TECHNIQUE: CT scan of the head is performed without contrast. FINDINGS: There is no acute intracranial hemorrhage, mass effect, or midline shift identified. The ventricles and sulci are within normal limits in size. The globes are intact and the visualized sin uses are clear. IMPRESSION: No acute intracranial hemorrhage, mass effect, or midline shift is seen.
[2018-08-03 07:20] LABS: T4, Free (Free Thyroxine) 0.74 ng/dL (0.78-2.19)
[2018-08-03 07:57] VITALS: BP 134/88; PULSE 82
--- NOTE | 2018-08-05 07:53 | CDI ---
Documentation Clarification OP Dear Dr. Aleksandar Nelson Please do addendum to ED report for missing HPI and Physical examination. Thank you, Alyson Bejarano Hobbing Machine Operator If you have any questions, please contact Music Box Mechanic at [phone] [facility]
== END 2018-08-03 08:03 | disposition home or self-care (01) ==
LOC: EC 04:04
DX: R10.9 Unspecified abdominal pain (principal); F41.9 Anxiety disorder, unspecified; R42 Dizziness and giddiness; E03.9 Hypothyroidism, unspecified; D64.9 Anemia, unspecified; Z79.899 Other long term (current) drug therapy
CPT/HCPCS: 36415; 70450; 80053; 80306; 81003; 81025; 82150; 83690; 84439; 84443; 85025; 96360; 99284

== ENCOUNTER 2018-08-09 18:38 | Emergency (ER) | payer BC, OTHER ==
[2018-08-09 19:57] VITALS: RESP 16
[2018-08-09 21:09] LABS: Appearance,Urine Clear (Clear); Bilirubin,Urine Negative (Negative); Blood,Urine Negative (Negative); Color,Urine Colorless; Glucose,Urine (UA) Negative (Negative); Ketones,Urine Negative (Negative); Leukocyte Esterase,Urine Moderate (Negative); Mucus,Urine Rare /hpf; Nitrite,Urine Negative (Negative); PH, Urine 5.5 (5.0-8.0); Protein,Urine Negative (Negative); RBC,Urine 1 /hpf (0-5); Specific Gravity,Urine 1.002 (1.001-1.035); Squamous Epithelial Cell,Urine <1 /hpf (0-4); Urobilinogen,Urine <2.0 mg/dL (<2.0); WBC,Urine 6 /hpf (0-5)
--- NOTE | 2018-08-09 21:25 | ED ---
General Adult HPI - General Chief complaint: Abdominal Pain Stated complaint: pelvic pain Time Seen by Provider: 08/09/18 20:23 Source: patient, RN notes reviewed Mode of arrival: ambulatory Limitations: no limitations - History of Present Illness Initial comments: 33-year-old female presented from for urinary frequency and dysuria. Patient states she was treated for BV recently states that did not help her symptoms. Patient states she has burning with urination. Patient reports no fevers or chills. No flank pain. Patient denies any other symptoms at this time. No abnormal discharge or bleeding. - Related Data Home Medications Medication Instructions Recorded Confirmed Pnv No.95/Ferrous Fum/Folic AC 1 tab PO HS 05/07/18 07/12/18 [ Multivitamin Tablet] Ferrous Sulfate [Iron (65 MG 325 mg PO HS 05/29/18 07/12/18 Elemental)] Levothyroxine Sodium [Synthroid] 112 mcg PO DAILY 07/12/18 07/12/18 Nadolol [Corgard] 20 mg PO DAILY@1200 07/12/18 07/12/18 Previous Rx's Medication Instructions Recorded Fluconazole [Diflucan] 150 mg PO ONCE #2 tab 08/09/18 Sulfamethox-Tmp 800-160Mg [Bactrim 1 each PO Q12HR #10 tab 08/09/18 Ds] Allergies Allergy/AdvReac Type Severity Reaction Status Date / Time No Known Allergies Allergy Verified 08/09/18 18:55 Review of Systems ROS Statement: Those systems with pertinent positive or pertinent negative responses have been documented in the HPI. ROS Other: All systems not noted in ROS Statement are negative. Past Medical History Past Medical History: Thyroid Disorder Additional Past Medical History / Comment(s): hypothyroidism, anemia, History of Any Multi-Drug Resistant Organisms: None Reported Past Surgical History: No Surgical Hx Reported Additional Past Surgical History / Comment(s): D&C, Past Anesthesia/Blood Transfusion Reactions: No Reported Reaction Past Psychological History: No Psychological Hx Reported Smoking Status: Never smoker Past Alcohol Use History: None Reported Past Drug Use History: None Reported - Past Family History Mother Family Medical History: No Reported History Father Family Medical History: Myocardial Infarction ([place]) General Exam Limitations: no limitations General appearance: alert, in no apparent distress Head exam: Present: atraumatic, normocephalic, normal inspection Respiratory exam: Present: normal lung sounds bilaterally. Absent: respiratory distress, wheezes, rales, rhonchi, stridor Cardiovascular Exam: Present: regular rate, normal rhythm, normal heart sounds. Absent: systolic murmur, diastolic murmur, rubs, gallop, clicks GI/Abdominal exam: Present: soft, normal bowel sounds. Absent: distended, tenderness, guarding, rebound, rigid Course Vital Signs 08/09/18 08/09/18 18:52 19:57 Temperature 97.9 F Pulse Rate 94 98 Respiratory 20 16 Rate Blood Pressure 115/78 135/89 O2 Sat by Pulse 99 95 Oximetry Medical Decision Making - Medical Decision Making Patient has symptomatic dysuria, noted white cells in her urine limited though she'll be treated with antibiotics at this time. She also be given Diflucan. Patient will follow-up PCP and return for any worsening symptoms. - Lab Data Lab Results 08/09/18 08/09/18 Range/Units 20:55 20:55 Urine Color Colorless Urine Appearance Clear (Clear) Urine pH 5.5 (5.0-8.0) Ur Specific [place] 1.002 (1.001-1.035) Urine Protein Negative (Negative) Urine Glucose (UA) Negative (Negative) Urine Ketones Negative (Negative) Urine Blood Negative (Negative) Urine Nitrite Negative (Negative) Urine Bilirubin Negative (Negative) Urine Urobilinogen <2.0 (<2.0) mg/dL Ur Leukocyte Esterase Moderate H (Negative) Urine RBC 1 (0-5) /hpf Urine WBC 6 H (0-5) /hpf Ur Squamous Epith Cells <1 (0-4) /hpf Urine Mucus Rare H (None) /hpf Urine HCG, Qual Not Detected (Not Detectd) Disposition Clinical Impression: UTI (urinary tract infection) Disposition: HOME SELF-CARE Condition: Stable Instructions: Urinary Tract Infection in Women ([place]) Additional Instructions: Please return to the Emergency Department if symptoms worsen or any other concerns. Prescriptions: Fluconazole [Diflucan] 150 mg PO ONCE #2 tab Sulfamethox-Tmp 800-160Mg [Bactrim Ds] 1 each PO Q12HR #10 tab Is patient prescribed a controlled substance at d/c from ED?: No Referrals: Kath Ramirez III, MD [Primary Care Provider] - 1-2 days Time of Disposition: 21:24
[2018-08-09] MEDS ORDERED: SULFAMETHOX-TMP 800-160MG 1 EACH TAB PO STA (21:37)
[2018-08-09] MEDS ORDERED: FLUCONAZOLE 150 MG TAB PO STA (21:37)
[2018-08-09 21:39] VITALS: BP 128/87; PULSE 91; TEMP 97.6
== END 2018-08-09 22:04 | disposition home or self-care (01) ==
LOC: EC 18:38
DX: N39.0 Urinary tract infection, site not specified (principal); E03.9 Hypothyroidism, unspecified; D64.9 Anemia, unspecified; Z79.899 Other long term (current) drug therapy
CPT/HCPCS: 81001; 81025; 87086; 99284

== ENCOUNTER 2018-12-13 07:09 | Emergency (ER) | payer BC, OTHER ==
--- NOTE | 2018-12-13 07:36 | ED ---
Female Urogenital HPI - General Chief complaint: Urogenital Stated complaint: Urinary issues Time Seen by Provider: 12/13/18 07:18 Source: patient, RN notes reviewed Mode of arrival: ambulatory Limitations: no limitations - History of Present Illness Initial comments: 33-year-old female presents emergency Department with dysuria. Patient states that it started a few days ago is worsens morning. She states that now she noticed some blood in the urine. Patient had multiple urinary tract infections and multiple issues in which she has seen approximately 30-40 doctors between eyes states [id number] for her symptomology with no major findings. Patient denies any fevers chills flank pain. Patient's had multiple CAT scans and ultrasounds with the last year with no findings of kidney stones. Patient denies any abdominal pain she does have some lower pelvic pressure. Patient states symptoms started after intercourse with states that she has no vaginal discharge or major send the bleeding at this time. Last Menstrual Period: 11/28/18 - Related Data Home Medications Medication Instructions Recorded Confirmed Pnv No.95/Ferrous Fum/Folic AC 1 tab PO HS 05/07/18 07/12/18 [ Multivitamin Tablet] Ferrous Sulfate [Iron (65 MG 325 mg PO HS 05/29/18 07/12/18 Elemental)] Levothyroxine Sodium [Synthroid] 112 mcg PO DAILY 07/12/18 07/12/18 Nadolol [Corgard] 20 mg PO DAILY@1200 07/12/18 07/12/18 Previous Rx's Medication Instructions Recorded Fluconazole [Diflucan] 150 mg PO ONCE #2 tab 08/09/18 Sulfamethox-Tmp 800-160Mg [Bactrim 1 each PO Q12HR #10 tab 08/09/18 Ds] Fluconazole [Diflucan] 150 mg PO ONCE #7 tab 12/13/18 Phenazopyridine [Pyridium] 200 mg PO TID #6 tablet 12/13/18 Sulfamethox-Tmp 800-160Mg [Bactrim 1 each PO Q12HR #20 tab 12/13/18 Ds] Allergies Allergy/AdvReac Type Severity Reaction Status Date / Time No Known Allergies Allergy Verified 12/13/18 07:17 Review of Systems ROS Statement: Those systems with pertinent positive or pertinent negative responses have been documented in the HPI. ROS Other: All systems not noted in ROS Statement are negative. Past Medical History Past Medical History: Thyroid Disorder Additional Past Medical History / Comment(s): hypothyroidism, anemia History of Any Multi-Drug Resistant Organisms: None Reported Past Surgical History: No Surgical Hx Reported Additional Past Surgical History / Comment(s): D&C Past Anesthesia/Blood Transfusion Reactions: No Reported Reaction Past Psychological History: No Psychological Hx Reported Smoking Status: Never smoker Past Alcohol Use History: None Reported Past Drug Use History: None Reported - Past Family History Mother Family Medical History: No Reported History Father Family Medical History: Myocardial Infarction ([place]) General Exam Limitations: no limitations General appearance: alert, in no apparent distress Head exam: Present: atraumatic, normocephalic, normal inspection Eye exam: Present: normal appearance, PERRL, EOMI. Absent: scleral icterus, conjunctival injection, periorbital swelling Respiratory exam: Present: normal lung sounds bilaterally. Absent: respiratory distress, wheezes, rales, rhonchi, stridor Cardiovascular Exam: Present: regular rate, normal rhythm, normal heart sounds. Absent: systolic murmur, diastolic murmur, rubs, gallop, clicks GI/Abdominal exam: Present: soft, tenderness (Mild suprapubic), normal bowel sounds. Absent: distended, guarding, rebound, rigid Back exam: Absent: CVA tenderness (R), CVA tenderness (L) Neurological exam: Present: alert, oriented X3, CN II-XII intact Skin exam: Present: warm, dry, intact, normal color. Absent: rash Course Vital Signs 12/13/18 07:14 Temperature 97.7 F Pulse Rate 115 H Respiratory 20 Rate Blood Pressure 124/83 O2 Sat by Pulse 98 Oximetry Medical Decision Making - Medical Decision Making 33-year-old female presented for dysuria. Patient does have notable hematuria and greater than 182 whites on her urinalysis. She's had extensive workup for this is not related to bladder mass or kidney stone. She will follow-up with urology as directed only start and airbags for hemorrhagic urinary tract infection. She is increase fluids and return for any worsening symptoms. - Lab Data Lab Results 12/13/18 12/13/18 Range/Units 07:24 07:24 Urine Color Red Urine Appearance Bloody H (Clear) Urine RBC >182 H (0-5) /hpf Urine WBC >182 H (0-5) /hpf Urine WBC Clumps Moderate H (None) /hpf Urine HCG, Qual Not Detected (Not Detectd) Disposition Clinical Impression: Urinary tract infection with hematuria Disposition: HOME SELF-CARE Condition: Stable Instructions (If sedation given, give patient instructions): Urinary Tract Infection in Women (ED) Additional Instructions: Please return to the Emergency Department if symptoms worsen or any other conc erns. Prescriptions: Sulfamethox-Tmp 800-160Mg [Bactrim Ds] 1 each PO Q12HR #20 tab Fluconazole [Diflucan] 150 mg PO ONCE #7 tab Phenazopyridine [Pyridium] 200 mg PO TID #6 tablet Is patient prescribed a controlled substance at d/c from ED?: No Referrals: Kath Ramirez III, MD [Primary Care Provider] - 1-2 days Time of Disposition: 08:01
[2018-12-13 07:44] LABS: RBC,Urine >182 /hpf (0-5)
[2018-12-13 07:45] LABS: Appearance,Urine Bloody (Clear); Color,Urine Red
[2018-12-13 08:17] VITALS: BP 135/99; PULSE 104; RESP 18; TEMP 97.9
== END 2018-12-13 08:17 | disposition home or self-care (01) ==
LOC: EC 07:09
DX: N39.0 Urinary tract infection, site not specified (principal); E03.9 Hypothyroidism, unspecified; D64.9 Anemia, unspecified; Z79.890 Hormone replacement therapy; Z79.899 Other long term (current) drug therapy
CPT/HCPCS: 81001; 81025; 87086; 99283

== ENCOUNTER 2019-02-17 23:14 | Emergency (ER) | payer BC, OTHER ==
[2019-02-17] MEDS ORDERED: PHENAZOPYRIDINE 200 MG TAB PO STA (23:56)
[2019-02-17 23:58] VITALS: BP 119/77; PULSE 101; RESP 18; TEMP 98.6
[2019-02-18 00:12] LABS: Appearance,Urine Clear (Clear); Bacteria,Urine Rare /hpf; Bilirubin,Urine Negative (Negative); Blood,Urine Small (Negative); Color,Urine Yellow; Glucose,Urine (UA) Negative (Negative); Hyaline Casts,Urine 1 /lpf (0-2); Ketones,Urine Negative (Negative); Leukocyte Esterase,Urine Large (Negative); Mucus,Urine Rare /hpf; Nitrite,Urine Negative (Negative); PH, Urine 5.5 (5.0-8.0); Protein,Urine Trace (Negative); RBC,Urine 5 /hpf (0-5); Specific Gravity,Urine 1.026 (1.001-1.035); Squamous Epithelial Cell,Urine 1 /hpf (0-4); Urobilinogen,Urine <2.0 mg/dL (<2.0)
[2019-02-18] MEDS ORDERED: SULFAMETH-TMP DS STARTER PACK 2 TAB BTL PO STA (00:23)
--- NOTE | 2019-02-18 00:24 | ED ---
Female Urogenital HPI - General Chief complaint: Urogenital Stated complaint: Pelvic Pain Time Seen by Provider: 02/17/19 23:33 Source: patient Mode of arrival: ambulatory Limitations: no limitations - History of Present Illness Initial comments: 33-year-old female patient presents to the emergency department today for evaluation for possible urinary tract infection. Patient states that for the last 3 days she has been having dysuria, urinary urgency, urinary frequency. Patient states that time she'll vomit only very small amounts with sulfa like s he has to go. She denies any nausea or vomiting. Denies any flank pain. She denies any fever or chills with this. Patient states she has had bladder infection in the past and this does feel similar. Patient denies any recent rash, shortness breath, chest pain, diarrhea, constipation, numbness, tingling, dizziness, weakness, headache, visual changes, or any other complaints. Last Menstrual Period: 01/18/19 - Related Data Home Medications Medication Instructions Recorded Confirmed ALPRAZolam [ALPRAZolam XR] 2 mg PO BID 12/13/18 12/13/18 Calcium Carbonate [Calcium] 600 mg PO DAILY 12/13/18 12/13/18 Cholecalciferol (Vitamin D3) 2,000 unit PO DAILY 12/13/18 12/13/18 [Vitamin D3] L.acidoph,Paracasei, B.lactis 1 cap PO DAILY 12/13/18 12/13/18 [Probiotic] LORazepam [Ativan] 2 mg PO HS 12/13/18 12/13/18 Levothyroxine Sodium [Synthroid] 137 mcg PO DAILY 12/13/18 12/13/18 Magnesium Oxide [Mag-Ox] 250 mg PO DAILY 12/13/18 12/13/18 Multivitamins, Thera [Multivitamin 1 tab PO DAILY 12/13/18 12/13/18 (formulary)] Osprey-3 Fatty Acids/Fish Oil [Fish 1 cap PO DAILY 12/13/18 12/13/18 Oil 1,000 mg Softgel] Previous Rx's Medication Instructions Recorded Fluconazole [Diflucan] 150 mg PO ONCE #7 tab 12/13/18 Phenazopyridine [Pyridium] 200 mg PO TID #6 tablet 12/13/18 Sulfamethox-Tmp 800-160Mg [Bactrim 1 each PO Q12HR #20 tab 12/13/18 Ds] Phenazopyridine [Pyridium] 200 mg PO TID #18 tablet 02/18/19 Sulfamethoxazole/Trimethoprim 1 each PO BID #14 tablet 02/18/19 [Bactrim DS 800-160 mg] Allergies Allergy/AdvReac Type Severity Reaction Status Date / Time peanut Allergy Unknown Verified 12/13/18 08:01 sesame seed Allergy Unknown Verified 12/13/18 08:01 Review of Systems ROS Statement: Those systems with pertinent positive or pertinent negative responses have been documented in the HPI. ROS Other: All systems not noted in ROS Statement are negative. Past Medical History Past Medical History: Thyroid Disorder Additional Past Medical History / Comment(s): hypothyroidism, anemia History of Any Multi-Drug Resistant Organisms: None Reported Past Surgical History: No Surgical Hx Reported Additional Past Surgical History / Comment(s): D&C Past Anesthesia/Blood Transfusion Reactions: No Reported Reaction Past Psychological History: No Psychological Hx Reported Smoking Status: Never smoker Past Alcohol Use History: None Reported Past Drug Use History: None Reported - Past Family History Mother Family Medical History: No Reported History Father Family Medical History: Myocardial Infarction ([place]) General Exam Limitations: no limitations General appearance: alert, in no apparent distress, other (Physical well- developed, well-nourished adult female patient in no acute distress. Vital signs upon presentation are temperature 98.6F, pulse 101, respirations 18, blood pressure 119/77, pulse ox 100% on room air.) Eye exam: Present: normal appearance, PERRL, EOMI. Absent: scleral icterus, conjunctival injection, periorbital swelling ENT exam: Present: normal exam, normal oropharynx, mucous membranes moist Respiratory exam: Present: normal lung sounds bilaterally. Absent: respiratory distress, wheezes, rales, rhonchi, stridor Cardiovascular Exam: Present: regular rate, normal rhythm, normal heart sounds. Absent: systolic murmur, diastolic murmur, rubs, gallop, clicks GI/Abdominal exam: Present: soft, tenderness (Mild suprapubic tenderness), normal bowel sounds. Absent: distended, guarding, rebound, rigid Back exam: Present: normal inspection. Absent: CVA tenderness (R), CVA tenderness (L) Neurological exam: Present: alert, oriented X3, CN II-XII intact Psychiatric exam: Present: normal affect, normal mood Skin exam: Present: warm, dry, intact, normal color. Absent: rash Course Vital Signs 02/17/19 23:19 Temperature 98.6 F Pulse Rate 101 H Respiratory 18 Rate Blood Pressure 119/77 O2 Sat by Pulse 100 Oximetry Medical Decision Making - Medical Decision Making 33-year-old female patient presents to the emergency department today for evaluation of dysuria, urinary urgency, urinary frequency. Physical examination does reveal some mild suprapubic tenderness. Urinalysis was obtained and showed trace protein, small amount of blood, large leukocyte esterase, 6 white blood cells, rare bacteria, and rare mucous. HCG was negative. Patient symptoms and urine findings we will treat for urinary tract infection with Bactrim. Urine has been sent for culture. She will be discharged to follow-up with her primary care physician for recheck in 1-2 days. Return parameters were discussed in detail. She verbalizes understanding and agrees with this plan. - Lab Data Lab Results 02/17/19 02/17/19 Range/Units 23:58 23:58 Urine Color Yellow Urine Appearance Clear (Clear) Urine pH 5.5 (5.0-8.0) Ur Specific Belle 1.026 (1.001-1.035) Urine Protein Trace H (Negative) Urine Glucose (UA) Negative (Negative) Urine Ketones Negative (Negative) Urine Blood Small H (Negative) Urine Nitrite Negative (Negative) Urine Bilirubin Negative (Negative) Urine Urobilinogen <2.0 (<2.0) mg/dL Ur Leukocyte Esterase Large H (Negative) Urine RBC 5 (0-5) /hpf Urine WBC 6 H (0-5) /hpf Ur Squamous Epith Cells 1 (0-4) /hpf Urine Bacteria Rare H (None) /hpf Hyaline Casts 1 (0-2) /lpf Urine Mucus Rare H (None) /hpf Urine HCG, Qual Not Detected (Not Detectd) Disposition Clinical Impression: Urinary tract infection Disposition: HOME SELF-CARE Condition: Good Instructions (If sedation given, give patient instructions): Urinary Tract Infection in Women (ED) Additional Instructions: Increase fluids. Complete antibiotic prescription in full. Follow-up with your primary care physician for recheck as it is possible. Return to the emergency department immediately for any new, worsening, or concerning symptoms. Prescriptions: Sulfamethoxazole/Trimethoprim [Bactrim DS 800-160 mg] 1 each PO BID #14 tablet Phenazopyridine [Pyridium] 200 mg PO TID #18 tablet Is patient prescribed a controlled substance at d/c from ED?: No Referrals: Kath Ramirez III, MD [Primary Care Provider] - 1-2 days Time of Disposition: 00:24
== END 2019-02-18 01:01 | disposition home or self-care (01) ==
LOC: EC 23:14
DX: N39.0 Urinary tract infection, site not specified (principal); E03.9 Hypothyroidism, unspecified; D64.9 Anemia, unspecified; Z32.02 Encounter for pregnancy test, result negative; Z79.890 Hormone replacement therapy; Z79.899 Other long term (current) drug therapy; Z91.018 Allergy to other foods; Z91.010 Allergy to peanuts
CPT/HCPCS: 81001; 81025; 87086; 99284